=== PATIENT | male | born 1945 | race Caucasian/White ===

== ENCOUNTER → 2020-07-28 12:39 | Outpatient (BNVA) | payer MEDICARE, SELFPAY | PROVIDERS: PCP Internal Medicine; Visit Provider Internal Medicine Cardiovascular Disease | DX: I25.10 Atherosclerotic heart disease of native coronary artery without angina pectoris (principal); I10 Essential (primary) hypertension; I49.3 Ventricular premature depolarization | CPT/HCPCS: 99212 ==

== ENCOUNTER 2020-10-25 08:48 | Emergency (ER) | payer MEDICARE, SELFPAY ==
[2020-10-25] VITALS (7 sets, daily range): BP systolic 133–156; BP diastolic 67–88; PULSE 61–69; RESP 16–18; TEMP 36.1–37.1; O2SAT 96–100; BMI 27.2
--- NOTE | ~2020-10-25 | US_ITS ---
EXAMINATION: US ABDOMEN LIMITED CLINICAL INFORMATION: Vomiting. GB only. COMPARISON: None TECHNIQUE: Real-time imaging of the right upper quadrant abdominal viscera. FINDINGS: There are no echogenic gallstones, wall thickening or tenderness over the right upper quadrant ultrasound probe. The gallbladder wall measures 0.2 cm thick. The CBD measures 0.26 cm and is nondilated. US/US abdomen limited IMPRESSION: Unremarkable gallbladder.
--- NOTE | ~2020-10-25 | CT_ITS ---
EXAMINATION: CT ABDOMEN AND PELVIS WITHOUT CONTRAST CLINICAL INFORMATION: Vomiting COMPARISON: Ultrasound abdomen 10/25/2020 TECHNIQUE: Multidetector volumetric imaging was performed from the superior aspect of the liver through the pubic symphysis. Sagittal and coronal reformatted images were obtained on the technologist's workstation. This CT examination was performed using dose optimization techniques as appropriate, variously including the following: *Automated exposure control *Adjustment of mA and/or kV according to patient size (this includes techniques or standardized protocols for targeted exams where dose is matched to indication/reason for exam; i.e. extremities or head) *Use of iterative reconstruction technique DLP: 522 mGy-cm FINDINGS: LUNG BASES: The visualized lung bases are unremarkable. There is a moderate size hiatal hernia or GE junction mass with proximal distal small bowel dilation with fluid. LIVER, GALLBLADDER, AND BILIARY TREE: The liver is normal in size, shape, and attenuation. No focal hepatic lesion or biliary ductal dilatation is present. The gallbladder is unremarkable with no evidence of radiopaque gallstones, gallbladder wall thickening, or obvious pericholecystic inflammatory changes. PANCREAS: Unremarkable. SPLEEN: Unremarkable. ADRENAL GLANDS: Unremarkable. KIDNEYS AND URETERS: The kidneys are normal in size, shape, and attenuation. No hydronephrosis, hydroureter, or calculi seen. No perinephric stranding. There is a 4.4 cm cyst upper mid pole right kidney. BLADDER: Unremarkable. GASTROINTESTINAL TRACT: There is scattered diverticuli, stool and gas seen throughout the colon without colonic distention or diverticulitis. The small bowel loops are normal caliber. The appendix is normal caliber. There is no free air or free fluid. ABDOMINAL WALL: Small umbilical hernia containing fat is noted. LYMPH NODES: Normal. VASCULAR: The abdominal aorta is of normal caliber. No retroperitoneal lymph nodes seen. PELVIC VISCERA: Unremarkable. OSSEOUS STRUCTURES: There is compression deformity L1 vertebra of indeterminate age. There is vacuum disc phenomena at L1-L2, TE 11-12 20 13-11 disc levels. Mild bilateral facet joint arthropathy seen at the elbow 5-S1 disc level. CT/CT abdomen pelvis wo con IMPRESSION: Moderate size soft tissue mass at GE junction question underlying mass versus hiatal hernia with mid and distal esophageal dilation from fluid. Consider endoscopy or upper GI exam Colonic diverticulosis without diverticulitis. No obstruction or free air seen. Compression deformity L1 vertebra of indeterminate age. Small to moderate size right renal cyst.
--- NOTE | 2020-10-25 08:57 | ED_ITS ---
HPI - Nausea/Vomiting/Diarrhea General Chief complaint: Nausea/Vomiting/Diarrhea Stated complaint: vomiting Time Seen by Provider: 10/25/20 08:57 Source: patient Mode of arrival: ambulatory Limitations: no limitations History of Present Illness MD elicited complaint: nausea and vomiting Onset (ago): day(s) (yesterday at noon) Description of vomiting: watery and bilious Associated nausea: Yes Associated abdominal pain: No Location of pain: none Exacerbating factors: eating Relieving factors: none Context: possible food poisoning (started the next day after eating a burger, thai fries, onion rings, then had a whoopie pie for dessert) Associated symptoms: nausea/vomiting Related Data Home Medications Medication Instructions Recorded Confirmed aspirin 81 mg tablet,delayed 81 mg PO DAILY 07/28/20 07/28/20 release isosorbide mononitrate 30 mg 30 mg PO DAILY 07/28/20 07/28/20 tablet,extended release 24 hr multivitamin 1 tab PO DAILY 07/28/20 07/28/20 Previous Rx's Medication Instructions Recorded metoprolol succinate 50 mg 50 mg PO DAILY #90 tab 07/08/20 tablet,extended release 24 hr atorvastatin 80 mg tablet 80 mg PO DAILY #90 tab 08/20/20 Allergies Allergy/AdvReac Type Severity Reaction Status Date / Time No Known Allergies Allergy Verified 10/25/20 08:51 Review of Systems Review of Systems: Constitutional : No Weight loss, No Fever, No Chills ENT/Mouth : No sore throat, No Rhinorrhea Eyes: No Swelling, No Redness Cardiovascular : No Chest Pain, No SOB, NoEdema Respiratory : No Cough, No Sputum, No Wheezing Gastrointestinal : Positive Nausea, Positive Vomiting, no Diarrhea, no abdominal Pain, No Hematochezia, No Melena Genitourinary : No Dysuria, No Urinary Frequency, No Hematuria, No Urgency Musculoskeletal : No joint pain, No Myalgias, No Joint Swelling Skin : No Skin Lesions, No rash Neuro : No Weakness, No Numbness, No Dizziness, No Headache Psych : No Anxiety/Panic, No Depression Heme/Lymph: No Bruising, No Lymphadenopathy Endocrine : No Polyuria, No Polydipsia All other systems reviewed and are negative. Gastrointestinal: Gastrointestinal: Reports nausea PMFSH Past Medical History Attestation statement: The following information was validated with the patient. Medical History CAD (coronary artery disease) HTN (hypertension) PVCs (premature ventricular contractions) Surgical History Hx of CABG Hx of cardiac cath Stented coronary artery Family History Family History (Updated 07/25/20 @ 11:52 by Estrella Heard [facility]) Father CVD (cardiovascular disease) Mother CVD (cardiovascular disease) Social History Social History (Updated 10/25/20 @ 09:05 by Merline Owens DO) Patient Tobacco Use Status: Never used Tobacco Use of substances other than those prescribed or required for medical reasons: No Advance Directives: No Advance Directives Information Provided: No Physical Exam Vital Signs: Vital Signs: Last Vital Signs Temp 98.8 F 10/25/20 10:31 Pulse 64 10/25/20 12:00 Resp 16 10/25/20 12:00 BP 133/88 10/25/20 12:00 Pulse Ox 99 10/25/20 12:00 Body Mass Index 27.2 Appearance: Alert. Oriented X3. No acute distress. Eyes: Pupils equal, round and reactive to light. ENT: Pharynx normal. Neck: Normal inspection. Neck supple. CVS: Normal heart rate and rhythm. Pulses normal. Respiratory: No respiratory distress. Breath sounds normal. Abdomen: Soft and non-tender. Skin: Skin warm and dry. Normal skin color. Normal skin turgor. Extremities: No lower extremity edema. No calf ttp Neuro: Oriented X 3. No motor deficit. No sensory deficit. Course Course Course Narrative: unable to tolerate PO will repeat medications, obtain CT scan for obstruction/mass GE junction mass cannot tolerate PO still will consult GI at this time 123pm Dr. Hall to see patient and obtain Endoscopy MDM - Nausea/Vomiting/Diarrhea MDM Narrative Medical decision making narrative: 75 yo male with hx of CABG and stent, HLD, HTN comes in with n/v no abdominal pain started after consuming a large meal at a club has not had prior abdominal surgeries at this time will obtain labs, EKG, US for gallstones, IVF, zofran, dispo per results and finding. Lab Data Result diagrams: 10/25/20 09:37 10/25/20 09:38 Labs: Lab Results 06/10/25/20 10/25/20 Range/Units 09:37 09:38 09:38 WBC 10.0 (4.8-10.8) X10*3/uL RBC 4.07 L (4.60-5.80) X10*6/uL Hgb 14.4 (14.0-18.0) g/dl Hct 42.8 (42-52) % MCV 105.2 H (80-98) fL MCH 35.4 H (27.0-33.0) pg MCHC 33.6 (31.0-36.0) g/dl RDW 12.4 (11.0-16.0) % Plt Count 220 (160-400) X10*3/uL MPV 10.7 (9.4-12.4) fL Immature Gran % (Auto) 0.3 (0.0-0.4) % Neut % (Auto) 78.4 H (45-73) % Lymph % (Auto) 15.1 L (20-40) % Roosevelt % (Auto) 5.6 (2-11) % Eos % (Auto) 0.4 (0-4) % Baso % (Auto) 0.2 (0-2) % Lymph # (Auto) 1.5 (1.2-4.9) X10*3/uL Roosevelt # (Auto) 0.6 (0.1-1.2) X10*3/uL Eos # (Auto) 0.0 (0.0-0.4) X10*3/uL Baso # (Auto) 0.0 (0.0-0.2) X10*3/uL Abs Immat Gran (auto) 0.03 (0.00-0.03) X10*3/uL Absolute Neuts (auto) 7.8 (2.0-8.3) X10*3/uL Absolute Nucleated RBC 0.000 (0.0-0.012) X10*3/uL Nucleated RBC % (auto) 0.0 (0.0-0.2) /100WBC PT (10.8-13.0) SEC INR (0.9-1.1) APTT (24.1-38.0) SEC Sodium 143 (135-145) mmol/L Potassium 4.0 (3.3-5.1) mmol/L Chloride 106 (96-108) mmol/L Carbon Dioxide 28 (22-29) mmol/L Anion Gap 13 (12-20) BUN 28 H (9-16) mg/dL Creatinine 1.26 (0.5-1.4) mg/dL Estim Creat Clear Calc 47.5 Estimated GFR 55 Random Glucose 125 H (60-115) mg/dL Calcium 10.0 (8.4-10.2) mg/dL Magnesium 2.3 (1.6-2.6) mg/dL Total Bilirubin 1.0 (0.0-1.0) mg/dL Direct Bilirubin 0.5 (0.0-0.5) mg/dL AST 34 (5-37) U/L ALT 23 (0-40) U/L Alkaline Phosphatase 70 (39-117) U/L Troponin I High Sens (<3.5-35.0) ng/L Total Protein 7.8 (6.5-8.0) g/dL Albumin 4.7 (3.5-5.0) g/dL Lipase 16 (8-78) U/L Urine Color Urine Appearance Urine pH (5.0-8.0) Ur Specific [place] (1.005-1.025) Urine Protein (NEG-TRACE) MG/DL Urine Glucose (UA) (NEG) MG/DL Urine Ketones (NEG) MG/DL Urine Blood (NEG) Urine Nitrite (NEG) Ur Leukocyte Esterase (NEG) Urine RBC (0) /HPF Urine WBC (0-4) /HPF Ur Squamous Epith Cells /LPF Urine Bacteria /LPF Urine Mucus /LPF COVID-19 (CRISTINA) Negative (Negative) COVID-19 Clin Com See Note 10/25/20 10/25/20 10/25/20 Range/Units 09:38 10:37 13:23 WBC (4.8-10.8) X10*3/uL RBC (4.60-5.80) X10*6/uL Hgb (14.0-18.0) g/dl Hct (42-52) % MCV (80-98) fL MCH (27.0-33.0) pg MCHC (31.0-36.0) g/dl RDW (11.0-16.0) % Plt Count (160-400) X10*3/uL MPV (9.4-12.4) fL Immature Gran % (Auto) (0.0-0.4) % Neut % (Auto) (45-73) % Lymph % (Auto) (20-40) % Roosevelt % (Auto) (2-11) % Eos % (Auto) (0-4) % Baso % (Auto) (0-2) % Lymph # (Auto) (1.2-4.9) X10*3/uL Roosevelt # (Auto) (0.1-1.2) X10*3/uL Eos # (Auto) (0.0-0.4) X10*3/uL Baso # (Auto) (0.0-0.2) X10*3/uL Abs Immat Gran (auto) (0.00-0.03) X10*3/uL Absolute Neuts (auto) (2.0-8.3) X10*3/uL Absolute Nucleated RBC (0.0-0.012) X10*3/uL Nucleated RBC % (auto) (0.0-0.2) /100WBC PT 12.4 (10.8-13.0) SEC INR 1.0 (0.9-1.1) APTT 29.9 (24.1-38.0) SEC Sodium (135-145) mmol/L Potassium (3.3-5.1) mmol/L Chloride (96-108) mmol/L Carbon Dioxide (22-29) mmol/L Anion Gap (12-20) BUN (9-16) mg/dL Creatinine (0.5-1.4) mg/dL Estim Creat Clear Calc Estimated GFR Random Glucose (60-115) mg/dL Calcium (8.4-10.2) mg/dL Magnesium (1.6-2.6) mg/dL Total Bilirubin (0.0-1.0) mg/dL Direct Bilirubin (0.0-0.5) mg/dL AST (5-37) U/L ALT (0-40) U/L Alkaline Phosphatase (39-117) U/L Troponin I High Sens 7.1 (<3.5-35.0) ng/L Total Protein (6.5-8.0) g/dL Albumin (3.5-5.0) g/dL Lipase (8-78) U/L Urine Color YELLOW Urine Appearance HAZY Urine pH 6.0 (5.0-8.0) Ur Specific [place] 1.025 (1.005-1.025) Urine Protein TRACE (NEG-TRACE) MG/DL Urine Glucose (UA) NEG (NEG) MG/DL Urine Ketones 5 (NEG) MG/DL Urine Blood 1+ H (NEG) Urine Nitrite NEG (NEG) Ur Leukocyte Esterase NEG (NEG) Urine RBC 1-4 (0) /HPF Urine WBC 0 (0-4) /HPF Ur Squamous Epith Cells TRACE /LPF Urine Bacteria NONE /LPF Urine Mucus 2+ /LPF COVID-19 (CRISTINA) (Negative) COVID-19 Clin Com ECG Data Attestation: I personally reviewed and interpreted this ECG as follows: ECG interpretation date: 10/25/20 ECG interpretation time: 10:11 Interpretation: Rate: 63 Rhythm: NSR with 1st degree AVB with occ PVCs [place]: normal Normal P waves. Normal JHOANA. Normal QRS complex. ST T wave : nonspecific flat no GERONIMO qTC: normal prior studies: no acute ischemia The study has been interpreted contemporaneously by me. . Discharge Plan Discharge Clinical Impression: Esophageal mass Vomiting Qualifiers: Vomiting type: unspecified Vomiting Intractability: intractable Nausea presence: with nausea Qualified Code(s): R11.2 - Nausea with vomiting, unspecified Patient Disposition: Admitted As Inpatient
--- NOTE | 2020-10-25 09:01 | ECG_ITS ---
Test Reason : CP Blood Pressure : / mmHG Vent. Rate : 063 BPM Atrial Rate : 063 BPM P-R Int : 206 ms QRS Dur : 100 ms QT Int : 466 ms P-R-T Axes : 018 -07 013 degrees QTc Int : 476 ms Sinus rhythm with occasional Premature ventricular complexes and Premature atrial complexes Otherwise normal ECG No previous ECGs available Referred By: Merline Owens Electronically Signed By:Murphy Olivas
--- NOTE | 2020-10-25 09:19 | PC.NURSE ---
portable ultrasound at bedside.
[2020-10-25 09:43] LABS: MANUAL DIFF FLAG NO
[2020-10-25] MEDS: ondansetron HCL 4 MG/2 ML VIAL IVPUSH ×2 (09:44→12:18)
[2020-10-25] MEDS: 0.9 % Sodium Chloride 1,000 ML 999 ML IVCONT (09:44)
[2020-10-25 09:58] LABS: COVID-19 Test Negative (Negative); IDNOW Serial# 9DD0AD1C
[2020-10-25 10:08] LABS: Basophils Percent Auto 0.2 % (0-2); Eosinophils Percent Auto 0.4 % (0-4); Hematocrit 42.8 % (42-52); Hemoglobin 14.4 g/dl (14.0-18.0); Imm Gran Abs Auto 0.03 X10*3/uL (0.00-0.03); Imm Gran Pct Auto 0.3 % (0.0-0.4); Lymphocytes Absolute Auto 1.5 X10*3/uL (1.2-4.9); Lymphocytes Percent Auto 15.1 % (20-40); Mean Corpuscular HGB Conc 33.6 g/dl (31.0-36.0); Mean Corpuscular Hemoglobin 35.4 pg (27.0-33.0); Mean Corpuscular Volume 105.2 fL (80-98); Mean Platelet Volume 10.7 fL (9.4-12.4); Monocytes Absolute Auto 0.6 X10*3/uL (0.1-1.2); Monocytes Percent Auto 5.6 % (2-11); Neutrophils Absolute Auto 7.8 X10*3/uL (2.0-8.3); Neutrophils Percent Auto 78.4 % (45-73); Platelet Count 220 X10*3/uL (160-400); Red Blood Count 4.07 X10*6/uL (4.60-5.80); Red Cell Distribution Width 12.4 % (11.0-16.0)
[2020-10-25 10:23] LABS: Alanine Aminotransferase 23 U/L (0-40); Albumin Level 4.7 g/dL (3.5-5.0); Alkaline Phosphatase 70 U/L (39-117); Anion Gap 13 (12-20); Aspartate Amino Transferase 34 U/L (5-37); Bilirubin Direct 0.5 mg/dL (0.0-0.5); Blood Urea Nitrogen 28 mg/dL (9-16); Carbon Dioxide 28 mmol/L (22-29); Chloride 106 mmol/L (96-108); Creatinine Clr Calc Pharmacy 47.5; Estimated Glomerular Filt Rate 55; Glucose Random 125 mg/dL (60-115); Lipase 16 U/L (8-78); Magnesium 2.3 mg/dL (1.6-2.6); Sodium 143 mmol/L (135-145); Total Protein 7.8 g/dL (6.5-8.0)
[2020-10-25 10:44] LABS: Glucose Urine UA NEG (NEG); Leukocyte Esterase Urine NEG (NEG); Nitrite Urine NEG (NEG); Specific Gravity - Urine 1.025 (1.005-1.025); Urine Blood 1+ (NEG); Urine Ketones 5 MG/DL (NEG); Urine Protein TRACE MG/DL (NEG-TRACE)
[2020-10-25 10:47] LABS: Appearance Urine HAZY; Color Urine YELLOW
[2020-10-25] MEDS: diphenhydrAMINE HCL 50 MG/ML VIAL 25 MG IVPUSH (10:56)
[2020-10-25] MEDS: Metoclopramide HCl 10 MG/2 ML VIAL 5 MG IVPUSH (10:56)
[2020-10-25 11:08] LABS: Mucus Urine 2+ /LPF; Squamous Epithelial Cell Urine TRACE /LPF; WBC Urine 0 /HPF (0-4)
[2020-10-25 11:36] LABS: Troponin-I High Sensitivity 7.1 ng/L (<3.5-35.0)
--- NOTE | 2020-10-25 12:20 | PC.NURSE ---
attempted PO trial on patient unsuccessfully- pt spitting up into an emesis bag, not tolerating small sips of water- provider made aware and CT scan and another dose of IVP zofran ordered and given
[2020-10-25 13:35] LABS: Prothrombin Time 12.4 SEC (10.8-13.0)
[2020-10-25 13:38] LABS: Partial Thromboplastin Time 29.9 SEC (24.1-38.0)
--- NOTE | 2020-10-25 14:09 | MHC.SHP ---
Pre-Procedural Eval Section A Date of Service: 10/25/20 The patient is an INPATIENT: No Changes since office visit: No Cold of Flu in the past 2 weeks, No New Medical Problems, No Changes in Medication and No Patient answered all questions The History & Physical has been completed within 30 days and I have reviewed it.: Yes Section B Chief Complaint: vomiting Allergies: Allergies Allergy/AdvReac Type Severity Reaction Status Date / Time No Known Allergies Allergy Verified 10/25/20 08:51 Plan I have reviewed the history and physical and performed a pertinent physical examination on my patient. No changes have occurred unless specified.
--- NOTE | 2020-10-25 15:33 | P.BOP_ITS ---
Brief Operative Note Date of Service: 10/25/20 Pre-op diagnosis: fb esophaGUS Post-op diagnosis: same (ESOPHAGEAL ULCER, SCHATZKI RING) Procedure: EGD Surgeon: Torsten Hall Anesthesia: GETA Was an Field Sales Engineer used for this Procedure?: No Estimated blood loss (mL): 5 Pathology: none sent Condition: stable Disposition: PACU
--- NOTE | 2020-10-25 21:03 | CONS_ITS ---
DATE OF SERVICE: 10/25/2020 REFERRING PHYSICIAN: Merline Owens DO REASON FOR CONSULTATION: Dysphagia and abnormal CT scan. HISTORY OF PRESENT ILLNESS: The patient is a pleasant 75-year-old man, who presented to the emergency room today with complaints of dysphagia. Symptoms began yesterday when he ate a salad that had chicken in it. Since that time, he has been unable to keep liquids or solids down. He denies a prior history of esophageal obstruction, but has had occasions, where food needs to be washed down with extra water. This has not been progressive. He does not have chronic reflux symptoms. There has been no hematemesis or melena. PAST MEDICAL HISTORY: 1. Coronary artery disease with stent placement and bypass surgery. 2. Hypertension. 3. Elevated cholesterol. 4. PVCs. CURRENT MEDICATIONS: Aspirin, isosorbide, multivitamins, metoprolol, and atorvastatin. ALLERGIES: NONE. FAMILY HISTORY: This is negative for esophageal malignancy. SOCIAL HISTORY: There is no current tobacco, alcohol, or substance abuse. REVIEW OF SYSTEMS: SKIN: No pruritus. HEENT: Negative. CARDIOPULMONARY: No shortness of breath or chest pain. GASTROINTESTINAL: As above. GENITOURINARY: Negative. NEUROPSYCHIATRIC: Negative. PHYSICAL EXAMINATION: GENERAL: Shows a pleasant male, sitting comfortably in bed. VITAL SIGNS: Reviewed in electronic medical record and are stable. SKIN: Anicteric. HEENT: Shows no scleral icterus. NECK: Without lymphadenopathy or thyromegaly. LUNGS: Clear. HEART: Shows regular rate and rhythm. S1, S2. No murmur. ABDOMEN: Soft without focal masses or tenderness. Bowel sounds are present. No organomegaly is noted. EXTREMITIES: Without edema. LABORATORY DATA: Obtained including blood work showing a normal CBC. CT imaging of the abdomen and pelvis was obtained, which is reviewed. This is interpreted as showing moderate size soft tissue mass at the EG junction, question of underlying mass versus hiatal hernia with mid distal esophageal dilation from fluid. IMPRESSION: Esophageal obstruction. The patient appears to have a partial esophageal obstruction. He is handling secretions, but is spitting up as well. He did not tolerate a trial of water. I have discussed endoscopy with him including risks and benefits. He understands these and agrees to proceed. This will be arranged for this afternoon. MD CECY Sauer/NORM / [id number]
--- NOTE | 2020-10-25 21:03 | OP_ITS ---
SURGEON: Torsten Hall MD INDICATIONS: Esophageal obstruction. PREOPERATIVE DIAGNOSIS: POSTOPERATIVE DIAGNOSIS: PROCEDURE PERFORMED: Upper endoscopy with removal of foreign body. ESTIMATED BLOOD LOSS: COMPLICATIONS: ANESTHESIA: ASSISTANTS: SPECIMENS: MEDICATIONS: Monitored anesthesia care. DESCRIPTION OF PROCEDURE: History and physical performed. The risks and benefits of the procedure were explained to the patient. Informed consent was obtained. The patient was placed in the left lateral decubitus position. The Olympus video gastroscope was introduced into the esophagus, stomach, and duodenum. Examination was performed and the scope was removed. He tolerated the procedure well and was taken to recovery area in stable condition. FINDINGS: Esophagus: The esophagus showed a partial food impaction at the EG junction with a piece of meat that had impacted along a Schatzki ring at 39 cm. There was associated ulceration above this. The food material was pushed into the stomach with the biopsy forceps and copious irrigation. The ulceration at the site of the food impaction showed some minor oozing that was stable at the termination of the procedure. The Schatzki ring was nonobstructive and the scope passed easily through this into the stomach. There was a small hiatal hernia. Stomach: The stomach showed no evidence of masses, ulcers, or polyps. Duodenum: The bulb and second portion were normal. IMPRESSION: 1. Food impaction. 2. EG junction ulcer. 3. Schatzki ring. RECOMMENDATIONS: 1. Soft diet x24 hours. 2. Omeprazole 40 mg daily. 3. Repeat upper endoscopy in the next 8 to 12 weeks. MD CECY Sauer/MODL / [id number] MTDD
--- NOTE | 2020-10-27 09:28 | HO.POSTANES ---
Post Anesthesia Evaluation Post Anesthesia Evaluation Anesthesia: General Endotracheal-GETA Mental Status: Awake Pain Control: Satisfactory Nausea/Vomiting: None Hydration: Adequate Anesthesia-Related Issues: No Anes. Related Issues
== END 2020-10-25 16:40 | disposition home or self-care (01) ==
PROVIDERS: Internal Medicine Gastroenterology; Emergency Provider Emergency Medicine; PCP Internal Medicine
PROC: 0DJ08ZZ Inspection of Upper Intestinal Tract, Via Natural or Artificial Opening Endoscopic (ICD-10-PCS; CPT 43235; principal; 2020-10-25 14:15)
DX: T18.128A Food in esophagus causing other injury, initial encounter (principal); K22.2 Esophageal obstruction; K22.10 Ulcer of esophagus without bleeding; K44.9 Diaphragmatic hernia without obstruction or gangrene; I10 Essential (primary) hypertension; I25.10 Atherosclerotic heart disease of native coronary artery without angina pectoris; Z79.82 Long term (current) use of aspirin; Z79.899 Other long term (current) drug therapy; Z95.1 Presence of aortocoronary bypass graft; Z95.5 Presence of coronary angioplasty implant and graft; Z20.822 Contact with and (suspected) exposure to COVID-19; X58.XXXA Exposure to other specified factors, initial encounter; Y93.9 Activity, unspecified; Y92.9 Unspecified place or not applicable; Y99.9 Unspecified external cause status
CPT/HCPCS: 43247; 36415; 74176; 76705; 80048; 80076; 81001; 83690; 83735; 84484; 85025; 85610; 85730; 86850; 86900; 86901; 87635; 93005; 96361; 96374; 96375; 96376; 99285; J1100; J1200; J2250; J2405; J2765

== ENCOUNTER 2020-11-20 11:29 | Outpatient (REF) | payer MEDICARE, SELFPAY ==
[2020-11-20 13:47] LABS: MANUAL DIFF FLAG NO
[2020-11-20 13:54] LABS: Basophils Percent Auto 0.5 % (0-2); Eosinophils Absolute Auto 0.4 X10*3/uL (0.0-0.4); Eosinophils Percent Auto 5.5 % (0-4); Hematocrit 40.5 % (42-52); Hemoglobin 13.6 g/dl (14.0-18.0); Imm Gran Abs Auto 0.02 X10*3/uL (0.00-0.03); Imm Gran Pct Auto 0.3 % (0.0-0.4); Lymphocytes Absolute Auto 1.7 X10*3/uL (1.2-4.9); Lymphocytes Percent Auto 22.3 % (20-40); Mean Corpuscular HGB Conc 33.6 g/dl (31.0-36.0); Mean Corpuscular Hemoglobin 35.1 pg (27.0-33.0); Mean Corpuscular Volume 104.7 fL (80-98); Mean Platelet Volume 11.3 fL (9.4-12.4); Monocytes Absolute Auto 0.6 X10*3/uL (0.1-1.2); Neutrophils Absolute Auto 4.7 X10*3/uL (2.0-8.3); Neutrophils Percent Auto 63.4 % (45-73); Platelet Count 223 X10*3/uL (160-400); Red Blood Count 3.87 X10*6/uL (4.60-5.80); Red Cell Distribution Width 12.1 % (11.0-16.0); White Blood Count 7.4 X10*3/uL (4.8-10.8)
[2020-11-20 14:18] LABS: Alanine Aminotransferase 19 U/L (0-40); Albumin Level 4.3 g/dL (3.5-5.0); Alkaline Phosphatase 70 U/L (39-117); Anion Gap 12 (12-20); Aspartate Amino Transferase 24 U/L (5-37); Bilirubin Total 0.9 mg/dL (0.0-1.0); Blood Urea Nitrogen 18 mg/dL (9-16); Calcium 9.3 mg/dL (8.4-10.2); Carbon Dioxide 28 mmol/L (22-29); Chloride 104 mmol/L (96-108); Cholesterol 123 mg/dL; Estimated Glomerular Filt Rate > 60; Glucose Fasting 88 mg/dL (60-99); HDL Cholesterol 44 mg/dL; LDL Cholesterol Calculated 62 mg/dl; Potassium 4.1 mmol/L (3.3-5.1); Sodium 140 mmol/L (135-145); Total Protein 7.2 g/dL (6.5-8.0); Triglycerides 88 mg/dL
[2020-11-20 14:39] LABS: Prostate Specific Antigen 1.76 ng/mL (<0.05-4.0)
== END 2020-11-20 11:30 | disposition home or self-care (01) ==
LOC: HO.HMGCLDS 11:29
PROVIDERS: PCP Internal Medicine; Visit Provider Internal Medicine
DX: Z12.5 Encounter for screening for malignant neoplasm of prostate (principal); I25.10 Atherosclerotic heart disease of native coronary artery without angina pectoris; E78.00 Pure hypercholesterolemia, unspecified; K21.9 Gastro-esophageal reflux disease without esophagitis; N40.0 Benign prostatic hyperplasia without lower urinary tract symptoms
CPT/HCPCS: 36415; 80053; 80061; 84153; 85025

== ENCOUNTER → 2021-01-29 12:24 | Outpatient (BNVA) | payer MEDICARE, SELFPAY | PROVIDERS: PCP Internal Medicine; Referring Provider Internal Medicine; Visit Provider Internal Medicine Cardiovascular Disease | DX: I25.10 Atherosclerotic heart disease of native coronary artery without angina pectoris (principal); I49.3 Ventricular premature depolarization; Z79.82 Long term (current) use of aspirin | CPT/HCPCS: 99212 ==

== ENCOUNTER 2021-02-17 07:50 | Day surgery (SDC) | payer MEDICARE, SELFPAY ==
[2021-02-12 10:03] VITALS: BMI 59.6
--- NOTE | 2021-02-16 10:51 | HO.ANESPROP2 ---
Documented by User: Santa Crawford NP 02/16/21 10:54 HPI - Anesthesia Eval Consult details Narrative: 75yo M for Upper Endoscopy and Colonoscopy cardiac cleared @ low risk s/p EGD (food bolus) with GETA 09/2020 [facility] Active Problems Active Problems: All Active Problems (Updated 10/26/20 @ 00:01 by Background Daemon) PVCs (premature ventricular contractions) (Acute) HTN (hypertension) (Acute) CAD (coronary artery disease) (Acute) Past Medical History Medical History CAD (coronary artery disease) HTN (hypertension) PVCs (premature ventricular contractions) Family History Family History Father CVD (cardiovascular disease) Mother CVD (cardiovascular disease) Surgical History Surgical History (Updated 02/12/21 @ 09:55 by Sindy Taylor RN) History of esophagogastroduodenoscopy (EGD) Hx of CABG Hx of cardiac cath Stented coronary artery Social History Social History Patient Tobacco Use Status: Never used Tobacco Advance Directives Information Provided: Yes (informational brochure mailed) Advance Directives on File: No Meds Allergies Allergy/AdvReac Type Severity Reaction Status Date / Time No Known Allergies Allergy Verified 10/25/20 08:51 Home Medications Medication Instructions Recorded Confirmed Last Taken Type aspirin 81 mg tablet,delayed 81 mg PO DAILY 07/28/20 02/12/21 Unknown History release (Adult Low Dose Aspirin) multivitamin 1 tab PO DAILY 07/28/20 02/12/21 Unknown History Exam Exam Date and Time: February 16, 2021 1051 Height,Weight and Vital Signs: Height 5 ft 8 in Weight 178 kg Pertinent Lab Results Pertinent Lab Results: Laboratory Tests 11/20/20 11/20/20 11:40 11:40 WBC 7.4 Hgb 13.6 L Hct 40.5 L Plt Count 223 Sodium 140 Potassium 4.1 Chloride 104 Carbon Dioxide 28 BUN 18 H Creatinine 1.17 Narrative Narrative: EKG 09/2020 Vent. Rate : 063 BPM ? ? Atrial Rate : 063 BPM ?? P-R Int : 206 ms? QRS Dur : 100 ms ? ? QT Int : 466 ms ? ? ? P-R-T Axes : 018 -07 013 degrees ?? QTc Int : 476 ms ? Sinus rhythm with occasional Premature ventricular complexes and Premature atrial complexes Otherwise normal ECG No previous ECGs available Assessment and Plan Assessment Anesthesia Assessment: Chart Reviewed Documented by User: Kristina Leal MD 02/17/21 09:33 PMF Active Problems Active Problems: All Active Problems (Updated 10/26/20 @ 00:01 by Gilberto Dajohn) PVCs (premature ventricular contractions) (Acute) HTN (hypertension) (Acute) CAD (coronary artery disease) (Acute). Denies recent chest pain Past Medical History Medical History CAD (coronary artery disease) HTN (hypertension) PVCs (premature ventricular contractions) Family History Family History Father CVD (cardiovascular disease) Mother CVD (cardiovascular disease) Family history of problems with anesthesia: No Surgical History Surgical History (Updated 02/12/21 @ 09:55 by Sindy Taylor RN) History of esophagogastroduodenoscopy (EGD) Hx of CABG Hx of cardiac cath Stented coronary artery History of Problems with Anesthesia: No Social History Social History Patient Tobacco Use Status: Never used Tobacco Advance Directives Information Provided: Yes (informational brochure mailed) Advance Directives on File: No Meds Allergies Allergy/AdvReac Type Severity Reaction Status Date / Time No Known Allergies Allergy Verified 10/25/20 08:51 Home Medications Medication Instructions Recorded Confirmed Last Taken Type aspirin 81 mg tablet,delayed 81 mg PO DAILY 07/28/20 02/12/21 Unknown History release (Adult Low Dose Aspirin) multivitamin 1 tab PO DAILY 07/28/20 02/12/21 Unknown History Exam Height,Weight and Vital Signs: Height 5 ft 8 in Weight 178 kg Vital Signs Temp Pulse Resp BP Pulse Ox 02/17/21 08:06 97.2 F 72 15 146/74 H 97 Airway Mallampati Class: III TM Dist: >3cm Neck ROM: Full Loose/Missing/Broken Teeth: No Heart: RRR Lungs: CTAB Assessment and Plan Assessment Anesthesia Assessment: Anesthesia Plan Discussed Final Anesthetic Review Family History of Problems with Anesthesia: No History of Problems with Anesthesia: No NPO: Yes ASA Class: III Final Preanesthetic Review: No Changes in Pt Med Stat, Meds/Allgs Chart Reviewed, Consent Obtained/Reviewed and Anes Risks/Benef Reviewed Patient Risk: Intermediate Procedure Risk: Low Assessment/Block/Sedation in SS: Assess/Block/Sedation-SS Anesthetic Plan Anesthetic Plan: MAC: Disposition: Standard PACU
[2021-02-17 08:00] VITALS: BMI 26.9
[2021-02-17 08:06] VITALS: BP 146/74; PULSE 72; RESP 15; TEMP 36.2; O2SAT 97
[2021-02-17] MEDS: Lactated Ringers 1,000 ML 100 ML IVCONT (08:27)
--- NOTE | 2021-02-17 08:56 | MHC.SHP ---
Pre-Procedural Eval Section A Date of Service: 02/17/21 Section B Chief Complaint: esophagitis Details of Present Illness: see h&p egd for f/u on esophagitis colonoscopy for colon cancer screening Relevant Family History (Specify if Yes): No Relevant Social History: None Present Medications: see Short Stay Collaborative assessment Medical History: Significant History (see h&p no changes) Allergies: Allergies Allergy/AdvReac Type Severity Reaction Status Date / Time No Known Allergies Allergy Verified 10/25/20 08:51 Review of Systems Sugical H&P ROS: Negative: Constitution, Cardiovascular, Respiratory, Neurological, Psychiatric, Hem-Onc, Allergic/Immunologic, Gastrointestinal, Genitourinary, Musculoskeletal, Integumentary, Endocrine and Eyes/Ears/Nose/Throat Exam Surgical H&P Exam: Normal: HEENT, Normal: Heart, Normal: Lungs, Normal: Extremities, Normal: Abdomen, Normal: Skin and Normal: Neurological Plan Diagnosis/Plan: Unchanged I have reviewed the history and physical and performed a pertinent physical examination on my patient. No changes have occurred unless specified.
--- NOTE | 2021-02-17 09:39 | P.BOP_ITS ---
Brief Operative Note Date of Service: 02/17/21 Pre-op diagnosis: esophagitis, screening Post-op diagnosis: same (schatzki ring, hiatal hernia, colon polyp) Procedure: EGD/colon Surgeon: Torsten Hall Anesthesia: MAC Was an Digital Marketing Specialist used for this Procedure?: No Estimated blood loss (mL): 5 Pathology: other (antral bx, egj bx, colon polyp) Condition: stable Disposition: PACU
[2021-02-17 09:42] VITALS: BP 105/53; PULSE 73; RESP 16; TEMP 37.1; O2SAT 99
[2021-02-17 09:56] VITALS: BP 102/58; PULSE 61; RESP 16; TEMP 37.1; O2SAT 96
--- NOTE | 2021-02-17 17:50 | OP_ITS ---
SURGEON: Torsten Hall MD INDICATIONS: Esophagitis and food impaction, colon cancer screening. PREOPERATIVE DIAGNOSIS: POSTOPERATIVE DIAGNOSIS: PROCEDURE PERFORMED: Upper endoscopy with biopsy, colonoscopy to the terminal ileum with biopsy. ESTIMATED BLOOD LOSS: COMPLICATIONS: ANESTHESIA: ASSISTANTS: SPECIMENS: MEDICATIONS: Monitored anesthesia care. DESCRIPTION OF PROCEDURE: History and physical performed. The risks and benefits of the procedure were explained to the patient. Informed consent was obtained. The patient was placed in a left lateral decubitus position. The Olympus video gastroscope was introduced into the esophagus, stomach, and duodenum. Examination was performed and the scope was removed. He tolerated the procedure well and was taken to recovery area in stable condition. FINDINGS: UPPER ENDOSCOPY: Esophagus: The esophagus was normal. There was no esophagitis. There was nonobstructive Schatzki ring and a small hiatal hernia. Biopsies were obtained from the EG junction. No dilation was done as the patient has had no symptoms since his food impaction. Stomach: The stomach was normal. Biopsies were obtained from the antrum to rule out H pylori. Duodenum: The bulb and second portion were normal. COLONOSCOPY: The terminal ileum was examined and appeared normal. The visualized colonic mucosa was normal. The quality of the prep was good. At 70 cm from the anal verge, was a less than 5 mm sessile polyp. This was removed with biopsy forceps. No other polyps were identified. There was moderate sigmoid diverticulosis without diverticulitis. Retroflexed examination was normal. IMPRESSION: 1. Hiatal hernia. 2. Schatzki ring. 3. Colon polyp. RECOMMENDATION: Follow up the biopsy results. MD CECY Sauer/SHANELLL / [phone]
== END 2021-02-17 10:29 | disposition home or self-care (01) ==
PROVIDERS: PCP Internal Medicine; Visit Provider Internal Medicine Gastroenterology
PROC: (CPT 45380; principal; 2021-02-17 08:50)
DX: Z12.11 Encounter for screening for malignant neoplasm of colon (principal); K63.5 Polyp of colon; K22.2 Esophageal obstruction; K44.9 Diaphragmatic hernia without obstruction or gangrene; K57.30 Diverticulosis of large intestine without perforation or abscess without bleeding; I49.3 Ventricular premature depolarization; I25.10 Atherosclerotic heart disease of native coronary artery without angina pectoris; Z98.61 Coronary angioplasty status; Z95.1 Presence of aortocoronary bypass graft; Z79.82 Long term (current) use of aspirin; Z79.899 Other long term (current) drug therapy
CPT/HCPCS: 45380; 43239; 88305; 88342

== ENCOUNTER → 2021-07-06 13:56 | Outpatient (REF) | payer MEDICARE, SELFPAY ==
--- NOTE | 2021-07-06 13:59 | CA_ITS ---
Transthoracic Echocardiogram Patient (Last, First, Middle): Dante Andino C Gender: Male Date of : 1945 Age: 76 Procedure Date: 07/06/2021 Procedure Type: Transthoracic Echocardiogram Location: OP Height: 172.72 cm Weight: 74.84 kg BSA: 1.88 m2 Heart Rate: bpm BP: 122 / 80 mmHg Dry Kiln Operator: LAURA Referring MD: Jason Okeefe MD Energy Assistant: Jason Okeefe MD Symptoms: I25.10 - Atherosclerotic heart disease of [place] coronary... Study Quality: Fair ECG Rhythm: Sinus Conclusions: - 1. Normal LV systolic function with impaired LV relaxation abnormality with RWMA 2. Normal cardiac valvular Dopplers 3. Normal RVSP 4. Mildly dilated ascending aorta 5. No gross pericardial effusion Findings Left Ventricle Normal left ventricular size, thickness, and systolic function. The visually estimated ejection fraction is between 60-65%. Spectral Doppler is indicative of an impaired relaxation filling pattern. E/E prime ratio is between 8 and 15 consistent with indeterminate filling pressures. Wall Motion Rest Echo Findings The basal inferior and basal inferoseptal segments are akinetic. All other scored wall segments showed normal motion. Right Ventricle Normal right ventricular cavity size and systolic function. Atria The left atrium is normal in size. Interatrial shunt cannot be excluded. The right atrium is normal in size. Aortic Valve There is mild calcification of the aortic valve. There is no aortic valve stenosis. There is trace (trivial) aortic valve regurgitation. Mitral Valve There is mild anterior and posterior mitral leaflet thickening. There is mild mitral annular calcification. There is trace mitral valve regurgitation. There is no mitral valve stenosis. Pulmonic Valve The pulmonic valve was not well visualized. Tricuspid Valve Likely normal tricuspid valve structure and function. There is trace tricuspid valve regurgitation. The right ventricular systolic pressure is normal. The right ventricular systolic pressure is 25 mmHg. Normal right atrial pressure. There is no evidence of pulmonary hypertension. Great Vessels The pulmonary artery was not well visualized. There is mild dilatation of the ascending aorta measuring 3.80 cm. Venous The inferior vena cava is normal in size and collapses greater than 50% with inspiration. Pericardium/Pleural There is no evidence of pericardial effusion. Prior Study Comparison Changes noted compared to prior study dated: 03/23/2017. Ascending aorta is mildly enlarged Measurements 2D Linear Measurements IVSd: 1.01 0.6-0.9/0.6-1.0 cm LVIDd: 4.99 3.9-5.3/4.2-5.9 cm LVIDd Index: 2.65 2.4-3.2/2.2-3.1 cm/m2 LVIDs: 3.97 2.0-3.6 cm LVPWd: 0.92 0.7-1.1 cm LA Diam: 3.70 2.7-3.8/3.0-4.0 cm LAIDs Index: 1.97 1.5-2.3 cm/m2 LV Mass: 215.11 67-162/88-224 g LV Mass Index: 114.42 43-95/49-115 g/m2 LVOT Diam: 2.10 3.0+(-)1.3 cm 2D Systolic Function EF 4C: 56.10 >55% EF 2C: 62.90 >55% EF BiP: 60.00 >55% Mitral Valve MV Pk E: 0.54 MV PK A: 0.81 MV Decel Time: 384.00 E/A: 0.70 E'Lateral: 9.25 E'Medial: 5.44 E/E' Med: 9.90 E/E' Lat: 5.80 PHT: 112.00 MVA PHT: 1.96 [place]: 1.41 LVOT LVOT Diam: 2.10 LVOT Area: 3.46 Diastolic Function MV Pk E: 0.54 MV Pk A: 0.81 E/A: 0.70 E'Medial: 5.44 E/E' Med: 9.90 E' Laterial: 9.25 E/E' Lat: 5.80 Right Ventricle TAPSE (mm): 16.90 TVS' Mendez: 11.30 Tricuspid Valve TR Pk Mendez: 2.34 TR Pk Grad: 22.00 RA Press: 3.00 RVSP: 25.00 Great Vessels Aorta Sinus of Valsalva: 3.81 2.0-3.[address] [place]: 3.04 1.7-3.4 cm Ao Asc: 3.80 2.1-3.4 cm Updated in Other Vendor System with Status of Final Jason Okeefe MD electronically signed on 07/06/2021 8:23:05 PM with status of Final
== END ==
LOC: HO.CARD 13:56
PROVIDERS: PCP Internal Medicine; Visit Provider Internal Medicine Cardiovascular Disease
DX: I25.10 Atherosclerotic heart disease of native coronary artery without angina pectoris (principal)
CPT/HCPCS: 93306

== ENCOUNTER → 2021-07-23 12:36 | Outpatient (BNVA) | payer MEDICARE, SELFPAY | PROVIDERS: PCP Internal Medicine; Referring Provider Internal Medicine; Visit Provider Internal Medicine Cardiovascular Disease | DX: I25.10 Atherosclerotic heart disease of native coronary artery without angina pectoris (principal); I49.3 Ventricular premature depolarization; I77.89 Other specified disorders of arteries and arterioles; Z79.899 Other long term (current) drug therapy | CPT/HCPCS: 99212 ==

== ENCOUNTER 2021-11-14 17:28 | Emergency (ER) | payer MEDICARE, SELFPAY ==
--- NOTE | ~2021-11-14 | XR_ITS ---
EXAMINATION: XR HIP, LEFT CLINICAL INFORMATION: Fall, pain COMPARISON: None TECHNIQUE: Two views of the left hip. FINDINGS: Single view pelvis also obtained. No fracture on the pelvic image. Degenerative changes are noted. 2. Detailed views of the left hip do not show convincing evidence for an acute fracture or dislocation. XR/XR hip LT w PEL1V IMPRESSION: Degenerative changes. No convincing evidence for an acute fracture or dislocation.
--- NOTE | ~2021-11-14 | CT_ITS ---
EXAMINATION: CT PELVIS WITHOUT CONTRAST CLINICAL INFORMATION: Left hip pain. Unable to walk. Negative x-ray COMPARISON: Left hip radiographs 11/14/2021 TECHNIQUE: Axial images were obtained through the pelvis without the administration of intravenous contrast. Coronal and sagittal reformatted images were generated. This CT examination was performed using dose optimization techniques as appropriate, variously including the following: *Automated exposure control *Adjustment of mA and/or kV according to patient size (this includes techniques or standardized protocols for targeted exams where dose is matched to indication/reason for exam; i.e. extremities or head) *Use of iterative reconstruction technique DLP: 355 mGy-cm FINDINGS: PELVIS: No free pelvic fluid. Bladder prostate gland are grossly unremarkable. Since the sigmoid diverticulosis. No evidence of acute diverticulitis. Small fat-containing left inguinal hernia. Moderate vascular calcifications. No pelvic or inguinal lymphadenopathy. No appreciable hip joint effusions. No soft tissue fluid collection/hematoma. OSSEOUS STRUCTURES: No acute fracture or dislocation. No osseous lesion. No CT findings of femoral head avascular necrosis. Relatively advanced bilateral hip joint osteonecrosis with severe joint space narrowing, subchondral sclerosis, and large osteophytes. Chronic fragmentation of the posterior left acetabular rim. Pubic symphysis and sacroiliac joints are congruent and intact. Mild superior endplate compression fracture of L4, new since prior CT of 10/25/2020 with approximately 20% central vertebral body height loss, exact age uncertain. CT/CT pelvis wo con IMPRESSION: 1. Mild superior endplate compression fracture of L4, new since CT of 10/25/2020, exact age uncertain. Correlate with pain referable to this level on exam. 2. No additional fracture or dislocation. 2. Advanced bilateral hip joint osteoarthritis.
--- NOTE | ~2021-11-14 | XR_ITS ---
EXAMINATION: XR LUMBOSACRAL SPINE CLINICAL INFORMATION: Fall with pain, worse on the left side. COMPARISON: CT abdomen/pelvis 10/25/2020. TECHNIQUE: Three views of the lumbosacral spine. FINDINGS: Compression deformity at L1 is unchanged when compared to 10/25/2020. Mild superior endplate compression deformity at L4 is new since 10/25/2020. Additional compression deformities at T11 and T12 are increased. S-shaped scoliosis. No subluxation. Moderate to severe multilevel lumbar spondylosis leading to variously degrees of neural foraminal encroachment and canal narrowing. SI joints are symmetric. No significant soft tissue abnormality. XR/XR lumbar spine 2-3V IMPRESSION: 1. New mild superior compression deformity at L4. 2. Increased mild compression deformities at T11 and T12. 3. Unchanged severe compression deformity at L1. 4. No subluxation. 5. Moderate to severe lumbar spondylosis.
--- NOTE | ~2021-11-14 | XR_ITS ---
EXAMINATION: XR CHEST CLINICAL INFORMATION: Pain, fall. COMPARISON: CT abdomen/pelvis 10/25/2020. TECHNIQUE: 2 views of the chest were obtained. FINDINGS: Sternal wires and mediastinal surgical clips. Coronary stents/calcifications. Otherwise, normal appearance of the cardiomediastinal silhouette. No focal airspace opacity, pleural effusion or pneumothorax. Thoracic spondylosis. Redemonstration of severe compression deformity at L1, stable when compared to 10/25/2020. XR/XR chest 2V IMPRESSION: No acute cardiopulmonary findings. No acutely displaced rib fractures.
--- NOTE | ~2021-11-14 | CT_ITS ---
Indication: Fall with head injury EXAMINATION: CT brain, CT cervical spine. Axial imaging with coronal and sagittal reformatted images. This CT examination was performed using dose optimization techniques as appropriate, variously including the following: *Automated exposure control *Adjustment of mA and/or kV according to patient size (this includes techniques or standardized protocols for targeted exams where dose is matched to indication/reason for exam; i.e. extremities or head) *Use of iterative reconstruction technique. Radiation dose 750. Findings; CT brain; There is no midline shift. There is no mass effect. There is no hemorrhage. The basal cisterns appear patent. The posterior fossa risk grossly within normal limits. There is no extra-axial collection. There is atrophy and white matter ischemic changes here. There is no evidence for fracture on the bone windows. CT cervical spine; Straightening of the normal lordosis. This may be due to position or spasm. There is no acute fracture or dislocation. CT/CT cervical spine wo con IMPRESSION: Negative acute noncontrast CT of the brain. No fracture or dislocation of the cervical spine. Degenerative changes and reversal of normal lordosis is noted.
--- NOTE | ~2021-11-14 | CT_ITS ---
Indication: Fall with head injury EXAMINATION: CT brain, CT cervical spine. Axial imaging with coronal and sagittal reformatted images. This CT examination was performed using dose optimization techniques as appropriate, variously including the following: *Automated exposure control *Adjustment of mA and/or kV according to patient size (this includes techniques or standardized protocols for targeted exams where dose is matched to indication/reason for exam; i.e. extremities or head) *Use of iterative reconstruction technique. Radiation dose 750. Findings; CT brain; There is no midline shift. There is no mass effect. There is no hemorrhage. The basal cisterns appear patent. The posterior fossa risk grossly within normal limits. There is no extra-axial collection. There is atrophy and white matter ischemic changes here. There is no evidence for fracture on the bone windows. CT cervical spine; Straightening of the normal lordosis. This may be due to position or spasm. There is no acute fracture or dislocation. CT/CT head/brain wo con IMPRESSION: Negative acute noncontrast CT of the brain. No fracture or dislocation of the cervical spine. Degenerative changes and reversal of normal lordosis is noted.
[2021-11-14 17:46] VITALS: BP 136/70; BP 147/71; PULSE 66; PULSE 68; RESP 18; TEMP 36.8; O2SAT 96; O2SAT 98; BMI 26.0
--- NOTE | 2021-11-14 18:34 | ED.FALL ---
HPI - Fall General Chief Complaint: Fall Stated Complaint: FALL OOB 10 DAYS AGO,HIP/L LEG PAIN,UNABLE TO AMB Time Seen by Provider: 11/14/21 17:49 Source: patient, family ( at bedside) and EMS Mode of arrival: EMS Limitations: no limitations History of Present Illness HPI Narrative: 76-year-old male with a past medical history of CAD, enlarged thoracic aorta, hypertension and PVCs being followed by Dr. Okeefe currently on aspirin no other blood thinners presenting to the ED with complaints of bilateral hip pain worse on the left foot difficulty walking since he had a fall on 11/05/2021. He reports that he was sleeping and he woke up on the floor on his left side and since then he has been having this pain and difficulty walking. He reports that he can stand up although cannot really walk a few steps due to the pain. reports that he was having sciatic pain a few days prior to the fall. He reports he did hit his head although no loss of consciousness. He denies any dizziness, headaches, neck pain/injury/ stiffness, chest pain or shortness of breath, dyspnea on exertion, orthopnea, palpitations, paresthesias, nausea/vomiting/ diarrhea, constipation, black or bloody stools, abdominal pain/ injury, back pain/injury, any other extremity injury, focal weakness or any other symptoms complaints or concerns at this time. MD complaint: fall Onset (ago): day(s) (9) Fall from: out of bed Fall witnessed: no Place fall occurred: home Loss of consciousness: none Prolonged down time: no Symptoms prior to fall: none Location of injury: head and pelvis ( And bilateral hips) Severity: mild Quality: aching Associated symptoms (after fall): other ( difficulty walking) Related Data Home Medications Medication Instructions Recorded Confirmed aspirin 81 mg tablet,delayed 81 mg PO DAILY 07/28/20 07/23/21 release (Adult Low Dose Aspirin) multivitamin 1 tab PO DAILY 07/28/20 07/23/21 ibuprofen 400 mg tablet (IBU) 400 mg PO TID 07/23/21 07/23/21 omeprazole 40 mg capsule,delayed 40 mg PO DAILY 07/23/21 07/23/21 release Previous Rx's Medication Instructions Recorded isosorbide mononitrate 30 mg 30 mg PO DAILY 90 days #90 tabs 12/10/20 tablet,extended release 24 hr metoprolol succinate 50 mg 50 mg PO DAILY #90 tabs 06/08/21 tablet,extended release 24 hr atorvastatin 80 mg tablet 80 mg PO DAILY #90 tabs 10/16/21 Allergies Allergy/AdvReac Type Severity Reaction Status Date / Time No Known Allergies Allergy Verified 11/14/21 17:46 Review of Systems Review of Systems: Constitutional : No Weight loss, No Fever, No Chills, No Night Sweats, No Fatigue, No Malaise ENT/Mouth : No Hearing loss, No Ear Pain, No Nasal Congestion, No Sinus Pain, No Hoarseness, No sore throat, No Rhinorrhea, No Swallowing Difficulty Eyes: No Eye Pain, No Swelling, No Redness, No Foreign Body, No Discharge, No Vision Changes Cardiovascular : No Chest Pain, No SOB, No Dyspnea on Exertion, No Orthopnea, No Edema, No Palpitations Respiratory : No Cough, No Sputum, No Wheezing, No Smoke Exposure, No Dyspnea Gastrointestinal : No Nausea, No Vomiting, No Diarrhea, No Constipation, No abdominal Pain, No Hematochezia, No Melena Genitourinary : no irregular bleeding, No Dysuria, No Urinary Frequency, No Hematuria, No Urinary Incontinence, No Urgency, No Flank Pain, No Urinary Flow Changes, No Hesitancy Musculoskeletal : + bilateral hip pain and difficulty walking, no additional joint pain, No Myalgias, No Joint Swelling, no neck pain / injury, no back pain/injury Skin : No Skin Lesions, No rash Neuro : No Weakness, No Numbness, No Paresthesias, No Loss of Consciousness, No Dizziness, No Headache Psych : No Anxiety/Panic, No Depression, No SI/HI/AH/VH, No Social Issues, Heme/Lymph: No Bruising, No Bleeding,No Lymphadenopathy Endocrine : No Polyuria, No Polydipsia, No Temperature Intolerance Yes all other systems are reviewed and are negative [facility] Past Medical History Attestation statement: The following information was validated with the patient. Source: old records reviewed and nursing notes reviewed Medical History CAD (coronary artery disease) Enlarged thoracic aorta HTN (hypertension) PVCs (premature ventricular contractions) Surgical History History of esophagogastroduodenoscopy (EGD) Hx of CABG Hx of cardiac cath Stented coronary artery Family History Family History Father CVD (cardiovascular disease) Mother CVD (cardiovascular disease) Social History Social History Patient Tobacco Use Status: Never used Tobacco Advance Directives: No Advance Directives Information Provided: No Physical Exam Vital Signs: Vital Signs: Last Vital Signs Temp 98.2 F 11/14/21 17:46 Pulse 66 11/14/21 17:46 Resp 18 11/14/21 17:46 BP 147/71 H 11/14/21 17:46 Pulse Ox 96 11/14/21 17:46 O2 Del Method 11/14/21 17:46 BMI result Body Mass Index 26.0 vital signs have been reviewed as normal and appeared to be correct. Blood pressure 147/71. Heart rate normal. Respiration rate normal. Temperature normal. Oxygen saturation normal. Appearance: Alert. Oriented X3. No acute distress. Head: Normal external exam. Normocephalic. Atraumatic. No Boland signs noted. No raccoon eyes noted Eyes: PERRLA. EOMI. Conjunctiva and sclera normal. Eyelids normal. ENT: EAC normal. TM's Normal. No septal hematoma noted. No hemotympanum noted. Pharynx normal. Uvula midline. Moist mucous membranes. No lesions/ulcerations or masses noted on the tongue. Normal voice. No trismus noted. No drooling noted. No muffled voice noted. Neck: Normal inspection. Neck supple. FROM. No adenopathy. Thyroid Normal. No tracheal deviation noted. No crepitus is noted. No meningeal signs. No neck mass noted. No signs of trauma noted. CVS: Normal heart rate and rhythm. Heart sound normal. Pulses normal throughout. No murmurs/rales/gallops. Respiratory: No respiratory distress. Painless inspiration. Breath sounds normal. No wheezes/rales/rhonchi noted. Chest nontender. No crepitus is noted. No signs of trauma noted. No accessory muscle usage noted or decreased air movement noted. Abdomen: Soft and nontender. Bowel sounds normal in all 4 quadrants. No distention noted. No organomegaly noted. No visible injury noted. Back: No CVA tenderness. Full range of motion noted. Nontender. No signs of trauma. Patient neuro intact bilaterally and distally on all 4 extremities. Patient's reflexes intact bilaterally and distally on all 4 extremities. No rashes/lesion/induration/fluctuance or signs of infection noted. Skin: Skin warm and dry. Normal skin color. Normal skin turgor. No rashes/lesions/lacerations noted. Extremities: patient reports pain with flexion and abduction to the left hip. Reports no pain with extension and abbuction of the left hip. He does have full range of motion no obvious ligamentous or tendon injury noted or deformities. No rashes are noted. Patient reports mild pain to the right hip although has full range of motion no obvious ligamentous or tendon injury noted. He is moving bilateral knees and his feet and toes no obvious deformities. Otherwise no lower extremity edema or calf tenderness noted and all other extremities exhibit normal range of motion nontender. Neuro: Oriented X 3. No motor deficit. No sensory deficit. Reflexes normal. No focal neuro deficits noted. CN's II-XII intact bilaterally?patient reports he is having trouble walking therefore gait not tested at this time. Will re-examine after imaging Vascular: + radial pulses/+ 2 distal pedal pulses/+2 dorsalis pedis b/l. Normal cap refill. No cyanosis noted to upper extremity nails and lower extremity toes nails. Course Course Course Narrative: 18pm - 76-year-old male with a past medical history of CAD, enlarged thoracic aorta, hypertension and PVCs being followed by Dr. Okeefe currently on aspirin no other blood thinners presenting to the ED with complaints of bilateral hip pain worse on the left foot difficulty walking since he had a fall on 11/05/2021. He reports that he was sleeping and he woke up on the floor on his left side and since then he has been having this pain and difficulty walking. He reports that he can stand up although cannot really walk a few steps due to the pain. reports that he was having sciatic pain a few days prior to the fall. He reports he did hit his head although no loss of consciousness. Plan: X-ray of left hip, chest x-ray, labs, CT scan of brain/ cervical spine without contrast and re-evaluate. Reevaluation(s) Reevaluation #1: - labs reviewed patient with mild anemia with an H&H of 12.5/37.3. - BUN/creatinine 34/1.66 this is new for the patient therefore at this time will provide 2 L of IV fluids and re-evaluate the patient's kidney function - otherwise all other labs are within normal limits. - Chest x-ray within normal limits no acute processes noted. - Left hip and pelvis x-ray negative for any acute processes only chronic changes such as arthritis. - CT scan of brain/cervical spine without contrast revealed chronic changes no acute processes were noted. - Therefore I ordered a lumbar spine x-ray despite the patient denying any lower back pain And pelvis CT and re-evaluate. Time: 19:31 Reevaluation #2: - pelvis CT revealed a mild superior endplate compression fracture of L4 new since CT of 10/25/2020. 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 - although lumbar spine x-ray revealed L1/L4/T11/T12 fractures no subluxation and moderate to severe lumbar spondylosis no other acute processes. - therefore I attempted to admit the patient for BASSAM although they reported that the patient can be hydrated and BUN and creatinine can be repeated which this is true therefore 2 L of IV fluids were ordered and he is receiving this now. I discussed this case with the patient and his at bedside and I explained to him that he should not go home due to the can not take care of him at home due to she has her own medical issues and she is about to receive physical therapy herself therefore I offered short-term rehab and they accepted therefore patient will be case management/PT and he will need repeat labs tomorrow morning I placed an order at this time. I also placed an order for oxycodone every 6 hours, Tylenol and Colace of the patient does not get constipated. Patient with at bedside understand agree this plan. Time: 20:36 MDM - Fall Medical Records Attestation: I reviewed the patient's medical records. Lab Data Attestation: I reviewed the patient's lab results. Result diagrams: 11/14/21 18:37 11/14/21 18:37 Labs: Lab Results 11/14/21 11/14/21 11/14/21 Range/Units 18:37 18:37 18:37 WBC 7.9 (4.8-10.8) X10*3/uL RBC 3.58 L (4.60-5.80) X10*6/uL Hgb 12.5 L (14.0-18.0) g/dl Hct 37.3 L (42.0-52.0) % MCV 104.2 H (80.0-98.0) fL MCH 34.9 H (27.0-33.0) pg MCHC 33.5 (31.0-36.0) g/dl RDW 12.0 (11.0-16.0) % Plt Count 235 (160-400) X10*3/uL MPV 10.1 (9.4-12.4) fL Immature Gran % (Auto) 0.4 (0.0-0.4) % Neut % (Auto) 65.0 (45-73) % Lymph % (Auto) 22.0 (20-40) % Martin % (Auto) 8.2 (2-11) % Eos % (Auto) 3.9 (0-4) % Baso % (Auto) 0.5 (0-2) % Lymph # (Auto) 1.7 (1.2-4.9) X10*3/uL Martin # (Auto) 0.7 (0.1-1.2) X10*3/uL Eos # (Auto) 0.3 (0.0-0.4) X10*3/uL Baso # (Auto) 0.0 (0.0-0.2) X10*3/uL Abs Immat Gran (auto) 0.03 (0.00-0.03) X10*3/uL Absolute Neuts (auto) 5.1 (2.0-8.3) x10*3/uL Absolute Nucleated RBC 0.000 (0.0-0.012) X10*3/uL Nucleated RBC % (auto) 0.0 (0.0-0.2) /100WBC PT 11.6 (10.0-13.1) SEC INR 1.0 (0.9-1.1) Sodium 140 (135-145) mmol/L Potassium 4.2 (3.3-5.1) mmol/L Chloride 105 (96-108) mmol/L Carbon Dioxide 25 (22-29) mmol/L Anion Gap 14 (12-20) BUN 34 H (9-16) mg/dL Creatinine 1.60 H (0.5-1.4) mg/dL Estim Creat Clear Calc 36.8 Estimated GFR 42 Random Glucose 107 (60-115) mg/dL Calcium 9.2 (8.4-10.2) mg/dL Magnesium 2.2 (1.6-2.6) mg/dL Total Bilirubin 0.6 (0.0-1.0) mg/dL AST 21 (5-37) U/L ALT 22 (0-40) U/L Alkaline Phosphatase 63 (39-117) U/L Total Creatine Kinase 71 (38-174) U/L Total Protein 6.9 (6.5-8.0) g/dL Albumin 4.1 (3.5-5.0) g/dL Imaging Data CT scan of brain/ cervical spine without contrast: Attestation: I personally reviewed and interpreted this imaging study as follows: Radiologist's impression: CT brain; There is no midline shift. There is no mass effect. There is no hemorrhage. The basal cisterns appear patent. The posterior fossa risk grossly within normal limits. There is no extra-axial collection. There is atrophy and white matter ischemic changes here. There is no evidence for fracture on the bone windows. CT cervical spine; Straightening of the normal lordosis. This may be due to position or spasm. There is no acute fracture or dislocation. CT/CT head/brain wo con IMPRESSION: Negative acute noncontrast CT of the brain. ? No fracture or dislocation of the cervical spine. Degenerative changes and reversal of normal lordosis is noted. left hip x-ray: Attestation: I personally reviewed and interpreted this imaging study as follows: Radiologist's impression: FINDINGS: Single view pelvis also obtained. No fracture on the pelvic image. Degenerative changes are noted. 2. Detailed views of the left hip do not show convincing evidence for an acute fracture or dislocation. XR/XR hip LT w PEL1V IMPRESSION: Degenerative changes. No convincing evidence for an acute fracture or dislocation. Chest x-ray: Attestation: I personally reviewed and interpreted this imaging study as follows: Radiologist's impression: FINDINGS: Sternal wires and mediastinal surgical clips. Coronary stents/calcifications. Otherwise, normal appearance of the cardiomediastinal silhouette. No focal airspace opacity, pleural effusion or pneumothorax. Thoracic spondylosis. Redemonstration of severe compression deformity at L1, stable when compared to 10/25/2020. XR/XR chest 2V IMPRESSION: No acute cardiopulmonary findings. ? No acutely displaced rib fractures. Lumbar spine x-ray: Attestation: I personally reviewed and interpreted this imaging study as follows: Radiologist's impression: FINDINGS: Compression deformity at L1 is unchanged when compared to 10/25/2020. Mild superior endplate compression deformity at L4 is new since 10/25/2020. Additional compression deformities at T11 and T12 are increased. S-shaped scoliosis. No subluxation. Moderate to severe multilevel lumbar spondylosis leading to variously degrees of neural foraminal encroachment and canal narrowing. SI joints are symmetric. No significant soft tissue abnormality. XR/XR lumbar spine 2-3V IMPRESSION: 1.? New mild superior compression deformity at L4. 2.? Increased mild compression deformities at T11 and T12. 3.? Unchanged severe compression deformity at L1. 4.? No subluxation. 5.? Moderate to severe lumbar spondylosis. Pelvis CT: Attestation: I personally reviewed and interpreted this imaging study as follows: Radiologist's impression: FINDINGS: PELVIS: No free pelvic fluid. Bladder prostate gland are grossly unremarkable. Since the sigmoid diverticulosis. No evidence of acute diverticulitis. Small fat-containing left inguinal hernia. Moderate vascular calcifications. No pelvic or inguinal lymphadenopathy. No appreciable hip joint effusions. No soft tissue fluid collection/hematoma.? OSSEOUS STRUCTURES: No acute fracture or dislocation. No osseous lesion. No CT findings of femoral head avascular necrosis. Relatively advanced bilateral hip joint osteonecrosis with severe joint space narrowing, subchondral sclerosis, and large osteophytes. Chronic fragmentation of the posterior left acetabular rim. Pubic symphysis and sacroiliac joints are congruent and intact. Mild superior endplate compression fracture of L4, new since prior CT of 10/25/2020 with approximately 20% central vertebral body height loss, exact age uncertain. CT/CT pelvis wo con IMPRESSION: ? 1. Mild superior endplate compression fracture of L4, new since CT of 10/25/2020, exact age uncertain. Correlate with pain referable to this level on exam. 2. No additional fracture or dislocation. 2. Advanced bilateral hip joint osteoarthritis.? Critical Care Time Critical Care Time Critical Care Time: Yes Total Critical Care Time: 60 Attestation: I personally attest to this time spent taking care of the patient Discharge Plan Discharge Clinical Impression: BASSAM (acute kidney injury), Fall, Closed fracture of T11 vertebra, T12 compression fracture, Closed compression fracture of L1 vertebra, Closed compression fracture of L4 vertebra Patient Disposition: Still a Patient Prescriptions: No Action isosorbide mononitrate 30 mg tablet extended release 24 hr 30 mg PO DAILY 90 Days Qty: 90 3RF metoprolol succinate 50 mg tablet extended release 24 hr 50 mg PO DAILY Qty: 90 1RF atorvastatin 80 mg tablet 80 mg PO DAILY Qty: 90 3RF aspirin [Adult Low Dose Aspirin] 81 mg tablet,delayed release (DR/EC) 81 mg PO DAILY multivitamin Tablet 1 tab PO DAILY omeprazole 40 mg capsule,delayed release(DR/EC) 40 mg PO DAILY ibuprofen [IBU] 400 mg tablet 400 mg PO TID
[2021-11-14 18:44] LABS: MANUAL DIFF FLAG NO
[2021-11-14 18:46] LABS: Basophils Percent Auto 0.5 % (0-2); Eosinophils Absolute Auto 0.3 X10*3/uL (0.0-0.4); Eosinophils Percent Auto 3.9 % (0-4); Hematocrit 37.3 % (42.0-52.0); Hemoglobin 12.5 g/dl (14.0-18.0); Imm Gran Abs Auto 0.03 X10*3/uL (0.00-0.03); Imm Gran Pct Auto 0.4 % (0.0-0.4); Lymphocytes Absolute Auto 1.7 X10*3/uL (1.2-4.9); Mean Corpuscular HGB Conc 33.5 g/dl (31.0-36.0); Mean Corpuscular Hemoglobin 34.9 pg (27.0-33.0); Mean Corpuscular Volume 104.2 fL (80.0-98.0); Mean Platelet Volume 10.1 fL (9.4-12.4); Monocytes Absolute Auto 0.7 X10*3/uL (0.1-1.2); Monocytes Percent Auto 8.2 % (2-11); Neutrophils Absolute Auto 5.1 x10*3/uL (2.0-8.3); Platelet Count 235 X10*3/uL (160-400); Red Blood Count 3.58 X10*6/uL (4.60-5.80); White Blood Count 7.9 X10*3/uL (4.8-10.8)
[2021-11-14 18:51] LABS: Prothrombin Time 11.6 SEC (10.0-13.1)
[2021-11-14 19:02] LABS: Alanine Aminotransferase 22 U/L (0-40); Albumin Level 4.1 g/dL (3.5-5.0); Alkaline Phosphatase 63 U/L (39-117); Anion Gap 14 (12-20); Aspartate Amino Transferase 21 U/L (5-37); Bilirubin Total 0.6 mg/dL (0.0-1.0); Blood Urea Nitrogen 34 mg/dL (9-16); Calcium 9.2 mg/dL (8.4-10.2); Carbon Dioxide 25 mmol/L (22-29); Chloride 105 mmol/L (96-108); Creatinine Clr Calc Pharmacy 36.8; Estimated Glomerular Filt Rate 42; Glucose Random 107 mg/dL (60-115); Magnesium 2.2 mg/dL (1.6-2.6); Potassium 4.2 mmol/L (3.3-5.1); Sodium 140 mmol/L (135-145); Total Protein 6.9 g/dL (6.5-8.0)
[2021-11-14] MEDS: 0.9 % Sodium Chloride 1,000 ML 999 ML IVCONT ×3 (19:48→23:50)
--- NOTE | 2021-11-14 19:50 | PC.NURSE ---
pt a&ox3, vss, CT/XR reports pending, ivf started, 20G left AC. no new orders at this time.
[2021-11-14] MEDS: Acetaminophen 325 MG TABLET 975 MG PO (23:50)
[2021-11-14 23:52] VITALS: BP 157/70; PULSE 66; RESP 18; O2SAT 96
[2021-11-15] VITALS (9 sets, daily range): BP systolic 120–171; BP diastolic 57–82; PULSE 56–81; RESP 12–20; TEMP 36.6–36.9; O2SAT 96–97
[2021-11-15 01:52] LABS: COVID-19 Test Negative (Negative)
--- NOTE | 2021-11-15 03:02 | PC.NURSE ---
report received from MILTON Holguin
--- NOTE | 2021-11-15 03:04 | PC.NURSE ---
Addendum entered by Mary Moon 11/15/21 07:01: report given to MILTON Irving Original Note: report received from MILTON Holguin
[2021-11-15] MEDS: Acetaminophen 325 MG TABLET 975 MG PO ×2 (06:50→20:12)
--- NOTE | 2021-11-15 10:10 | MHC.CM.PN ---
Met with pt and spouse Claudine. Pt resides at home without services but uses a walker and urinal. Pt has had several falls and is unsteady. Recent imaging + for lower lumber fx's. Pts spouse unable to care for pt d/t her own physical limitations. Discussed services including private [facility] to which Claudine felt was not an option and wanted to pursue placement. PT eval to occur on 11/16. Acute and subacute rehab referrals placed: HCP completed and uploaded. Pt and spouse aware of boarding status and limited STR beds in the community. CM to follow
--- NOTE | 2021-11-15 10:39 | PHA.MEDREC ---
Pharmacy Consult ? Medication Reconciliation Pharmacy has completed the medication reconciliation. Spoke with patient and in overflow
[2021-11-15 12:28] LABS: Anion Gap 12 (12-20); Blood Urea Nitrogen 21 mg/dL (9-16); Calcium 8.7 mg/dL (8.4-10.2); Carbon Dioxide 24 mmol/L (22-29); Chloride 106 mmol/L (96-108); Creatinine Clr Calc Pharmacy 51.6; Estimated Glomerular Filt Rate > 60; Glucose Random 92 mg/dL (60-115); Potassium 3.9 mmol/L (3.3-5.1); Sodium 138 mmol/L (135-145)
[2021-11-15] MEDS: oxyCODONE HCl ER 10 MG TAB.ER.12H PO (13:09)
[2021-11-15] MEDS: Aspirin Enteric Coated 81 MG TABLET.DR PO (13:09)
[2021-11-15] MEDS: Isosorbide Mononitrate 30 MG TAB.ER.24H PO (13:10)
[2021-11-15] MEDS: Metoprolol Succinate ER 50 MG TAB.ER.24H PO (13:12)
--- NOTE | 2021-11-15 18:00 | PC.NURSE ---
PT ALERT, VSS, DENIES PAIN. MEDS GIVEN DOCUMENTED, PT'S AT HIS BEDSIDE, NO COMPLAINTS.
[2021-11-15] MEDS: Atorvastatin Calcium 80 MG TABLET PO (20:12)
[2021-11-16] MEDS: Cyclobenzaprine HCl 10 MG TABLET PO ×2 (02:28→14:34)
[2021-11-16 06:00] VITALS: RESP 18
[2021-11-16] MEDS: Acetaminophen 325 MG TABLET 975 MG PO ×3 (06:14→22:51)
[2021-11-16 07:55] VITALS: BP 171/76; PULSE 69; O2SAT 97
[2021-11-16 09:21] VITALS: BP 159/79; PULSE 71; RESP 17; TEMP 36.3; O2SAT 98
[2021-11-16] MEDS: Metoprolol Succinate ER 50 MG TAB.ER.24H PO (09:47)
[2021-11-16] MEDS: Isosorbide Mononitrate 30 MG TAB.ER.24H PO (09:47)
[2021-11-16] MEDS: Aspirin Enteric Coated 81 MG TABLET.DR PO (09:47)
[2021-11-16 10:47] LABS: Appearance Urine CLEAR; Color Urine YELLOW; Glucose Urine UA NEG (NEG); Leukocyte Esterase Urine NEG (NEG); Nitrite Urine NEG (NEG); UACC Culture Trigger NO; Urine Blood TRACE (NEG); Urine Ketones NEG (NEG); Urine Protein NEG (NEG-TRACE)
[2021-11-16 11:07] LABS: Mucus Urine TRACE /LPF; RBC Urine 0-2 /HPF (0); WBC Urine 0 /HPF (0-4)
--- NOTE | 2021-11-16 12:37 | PC.NURSE ---
pt resting in bed. PT down to see pt this morning. pt reports he does not want to take hiis scheduled oxycodone any more as he got high and confused when he took it yesterday, reports hallucinations. pt A&Ox3 at this time. no complaints. plan for STR. , Claudine, involved in pt care and plan
--- NOTE | 2021-11-16 13:19 | MHC.CM.PN ---
CM SPOKE WITH PTS REGARDING STR PLACEMENT SHE WAS INFORMED [facility] IS THE ONLY [facility] OFFERING AN STR BED AT THIS TIME SHE IS AWARE WE ARE AWAITING AUTH AND HE WILL TRANSFER ONCE IT IS OBTAINED PT WILL NEED BLS TRANSPORT-BOOKED ON HOLD
[2021-11-16 15:01] VITALS: BP 121/66; PULSE 70; RESP 18; TEMP 36.3; O2SAT 97
--- NOTE | 2021-11-16 16:52 | MHC.CM.ED ---
Awaiting insurance auth from [employer] for STR at [facility]. Hopefully 11/17. Will check in am. Transport booked, but on hold.
[2021-11-16 20:16] VITALS: BP 147/65; PULSE 68; RESP 14; TEMP 36.6; O2SAT 98
[2021-11-16] MEDS: Atorvastatin Calcium 80 MG TABLET PO (20:20)
[2021-11-17 06:00] VITALS: BP 175/101; PULSE 62; RESP 16; TEMP 36.6; O2SAT 96
[2021-11-17] MEDS: Acetaminophen 325 MG TABLET 975 MG PO ×2 (06:09→13:46)
[2021-11-17 07:59] VITALS: BP 135/80; PULSE 65; RESP 16; TEMP 36.4; O2SAT 95
[2021-11-17] MEDS: Aspirin Enteric Coated 81 MG TABLET.DR PO (09:03)
[2021-11-17] MEDS: Isosorbide Mononitrate 30 MG TAB.ER.24H PO (09:03)
[2021-11-17] MEDS: Metoprolol Succinate ER 50 MG TAB.ER.24H PO (09:07)
--- NOTE | 2021-11-17 10:50 | PC.NURSE ---
pt sitting up in bed c/o feeling dizzy, diaphoretic and slight blurry vision denies any chest pain. ortho vs done lying 70/41-54-97%, sitting 83/64-50. mlp(pedro pablo) aware, vs rechecked after 10mins lying 136/70-69. pt is a/o x 3 no sob/akua noted.
--- NOTE | 2021-11-17 11:20 | PC.NURSE ---
mlp (pedro pablo) at bedside earlier, ortho vs lying 142/75-67, sitting 101/56-74, standing 93/54-63 c/o dizziness and slightly diaphoretic. pt returned to bed. spouse at bedside. pt/ aware of plan of care.
[2021-11-17] MEDS: 0.9 % Sodium Chloride 1,000 ML 999 ML IV (11:56)
[2021-11-17 12:10] LABS: MANUAL DIFF FLAG NO
[2021-11-17 12:11] LABS: Basophils Percent Auto 0.4 % (0-2); Eosinophils Absolute Auto 0.3 X10*3/uL (0.0-0.4); Eosinophils Percent Auto 3.6 % (0-4); Hematocrit 39.4 % (42.0-52.0); Hemoglobin 13.3 g/dl (14.0-18.0); Imm Gran Abs Auto 0.03 X10*3/uL (0.00-0.03); Imm Gran Pct Auto 0.3 % (0.0-0.4); Lymphocytes Absolute Auto 1.6 X10*3/uL (1.2-4.9); Lymphocytes Percent Auto 16.5 % (20-40); Mean Corpuscular HGB Conc 33.8 g/dl (31.0-36.0); Mean Corpuscular Hemoglobin 34.8 pg (27.0-33.0); Mean Corpuscular Volume 103.1 fL (80.0-98.0); Mean Platelet Volume 9.8 fL (9.4-12.4); Monocytes Absolute Auto 0.6 X10*3/uL (0.1-1.2); Monocytes Percent Auto 6.1 % (2-11); Neutrophils Absolute Auto 6.9 x10*3/uL (2.0-8.3); Neutrophils Percent Auto 73.1 % (45-73); Platelet Count 245 X10*3/uL (160-400); Red Blood Count 3.82 X10*6/uL (4.60-5.80); Red Cell Distribution Width 11.9 % (11.0-16.0); White Blood Count 9.5 X10*3/uL (4.8-10.8)
[2021-11-17 12:24] LABS: Anion Gap 13 (12-20); Blood Urea Nitrogen 17 mg/dL (9-16); Carbon Dioxide 25 mmol/L (22-29); Chloride 104 mmol/L (96-108); Creatinine Clr Calc Pharmacy 50.7; Estimated Glomerular Filt Rate > 60; Glucose Random 122 mg/dL (60-115); Potassium 4.1 mmol/L (3.3-5.1); Sodium 138 mmol/L (135-145)
[2021-11-17 13:57] VITALS: BP 141/73; PULSE 64; RESP 16; TEMP 36.3; O2SAT 96
--- NOTE | 2021-11-17 14:25 | PC.NURSE ---
pts vitals 159/75 lying. 157/76 sitting. pt was unable to stand because of pain in hip. pt stated that he did not feel dizzy from lying to sitting.
[2021-11-17 18:16] VITALS: BP 136/73; PULSE 65; RESP 16; TEMP 36.8; O2SAT 98
== END 2021-11-17 19:21 | disposition skilled nursing facility (03) ==
PROVIDERS: Nurse Practitioner Family; Physician Assistant Medical; Emergency Provider Emergency Medicine; PCP Internal Medicine
DX: S32.048A Other fracture of fourth lumbar vertebra, initial encounter for closed fracture (principal); S22.088A Other fracture of T11-T12 vertebra, initial encounter for closed fracture; W06.XXXA Fall from bed, initial encounter; I95.1 Orthostatic hypotension; M47.895 Other spondylosis, thoracolumbar region; N17.9 Acute kidney failure, unspecified; M16.0 Bilateral primary osteoarthritis of hip; M25.552 Pain in left hip; M25.551 Pain in right hip; D64.9 Anemia, unspecified; I10 Essential (primary) hypertension; R26.2 Difficulty in walking, not elsewhere classified; I25.10 Atherosclerotic heart disease of native coronary artery without angina pectoris; Z91.81 History of falling; Z79.82 Long term (current) use of aspirin; Z79.02 Long term (current) use of antithrombotics/antiplatelets; Z98.61 Coronary angioplasty status; Y93.89 Activity, other specified; Y92.092 Bedroom in other non-institutional residence as the place of occurrence of the external cause; Y99.9 Unspecified external cause status
CPT/HCPCS: 36415; 70450; 71046; 72100; 72125; 72192; 73502; 80048; 80053; 81001; 82550; 83735; 85025; 85610; 87635; 96360; 96361; 97162; 97166; 99285

== ENCOUNTER 2021-12-16 13:24 | Outpatient (REF) | payer MEDICARE, SELFPAY ==
--- NOTE | ~2021-12-16 | MM_ITS ---
EXAMINATION: DXA VERTEBRAL FRACTURE ASSESSMENT CLINICAL INFORMATION: Compression fracture COMPARISON: Lumbosacral spine study of 11/14/2021 TECHNIQUE: Your patient completed a vertebral fracture assessment using the [employer] DXA system (software version: 14.10) manufactured by [employer]. The following summarizes the results of our evaluation. LVA MORPHOMETRY RESULTS: Evaluation of the thoracolumbar spine from T4 through L5 was performed. Image quality is good. There is a severe biconcave fracture of the L1 vertebral body of greater than 50%. The anterior to posterior ratio Z score was -4.7 There is a moderate biconcave fracture of the L4 vertebral body visually with approximately 30% loss of height in its middle aspect. By quantitative evaluation of the L4 vertebral body, it was was graded as severe. The AP ratio Z score was -2.7. MM/XR DEXA vertrebral fracture IMPRESSION: Compression fractures of the L1 and L4 vertebral bodies which quantitatively were graded as severe biconcavity. RECOMMENDATIONS: All patients should ensure an adequate intake of dietary calcium (1200 mg/d) and vitamin D (400-800 IU/d). Effective therapies are now available in the form of bisphosphonates, (alendronate, ibandronate, risedronate, zoledronic acid), antiresorptive agents (calcitonin, estrogen+progesterone and raloxifene) and anabolic agent (teriparatide). These therapies may reduce vertebral, hip and other fractures by up to 50%. FOLLOW-UP: People with diagnosed cases of osteoporosis, high risk for fracture, or current vertebral fractures should have regular bone mineral density tests. The frequency of follow-up vertebral fracture assessment tests should be determined based on clinical circumstances. Often times, testing frequency will be based on rapidly progressing disease, or the addition or elimination of therapy to treat the disease.
== END 2021-12-16 13:25 | disposition home or self-care (01) ==
LOC: HO.MAMMO 13:24
PROVIDERS: PCP Internal Medicine; Visit Provider Internal Medicine
DX: S22.000A Wedge compression fracture of unspecified thoracic vertebra, initial encounter for closed fracture (principal)
CPT/HCPCS: 77086

== ENCOUNTER 2021-12-24 09:38 | Outpatient (REF) | payer MEDICARE, SELFPAY ==
[2021-12-24 11:21] LABS: MANUAL DIFF FLAG NO
[2021-12-24 11:30] LABS: Basophils Absolute Auto 0.1 X10*3/uL (0.0-0.2); Basophils Percent Auto 0.6 % (0-2); Eosinophils Absolute Auto 0.3 X10*3/uL (0.0-0.4); Hematocrit 41.5 % (42.0-52.0); Hemoglobin 13.8 g/dl (14.0-18.0); Imm Gran Abs Auto 0.04 X10*3/uL (0.00-0.03); Imm Gran Pct Auto 0.5 % (0.0-0.4); Lymphocytes Absolute Auto 2.1 X10*3/uL (1.2-4.9); Lymphocytes Percent Auto 24.2 % (20-40); Mean Corpuscular HGB Conc 33.3 g/dl (31.0-36.0); Mean Corpuscular Hemoglobin 35.1 pg (27.0-33.0); Mean Corpuscular Volume 105.6 fL (80.0-98.0); Mean Platelet Volume 10.9 fL (9.4-12.4); Monocytes Absolute Auto 0.7 X10*3/uL (0.1-1.2); Neutrophils Absolute Auto 5.4 x10*3/uL (2.0-8.3); Neutrophils Percent Auto 62.7 % (45-73); Platelet Count 262 X10*3/uL (160-400); Red Blood Count 3.93 X10*6/uL (4.60-5.80); Red Cell Distribution Width 12.5 % (11.0-16.0); White Blood Count 8.5 X10*3/uL (4.8-10.8)
[2021-12-24 11:56] LABS: Alanine Aminotransferase 24 U/L (0-40); Albumin Level 4.5 g/dL (3.5-5.0); Alkaline Phosphatase 75 U/L (39-117); Anion Gap 14 (12-20); Aspartate Amino Transferase 23 U/L (5-37); Bilirubin Total 0.8 mg/dL (0.0-1.0); Blood Urea Nitrogen 19 mg/dL (9-16); Calcium 9.7 mg/dL (8.4-10.2); Carbon Dioxide 26 mmol/L (22-29); Chloride 102 mmol/L (96-108); Cholesterol 118 mg/dL; Estimated Glomerular Filt Rate > 60; Glucose Fasting 102 mg/dL (60-99); HDL Cholesterol 43 mg/dL; LDL Cholesterol Calculated 42 mg/dl; Potassium 4.2 mmol/L (3.3-5.1); Sodium 138 mmol/L (135-145); Total Protein 7.4 g/dL (6.5-8.0); Triglycerides 167 mg/dL
== END 2021-12-24 09:39 | disposition home or self-care (01) ==
LOC: HO.HMGCLDS 09:38
PROVIDERS: PCP Internal Medicine; Visit Provider Internal Medicine
DX: I25.10 Atherosclerotic heart disease of native coronary artery without angina pectoris (principal); I10 Essential (primary) hypertension; E78.00 Pure hypercholesterolemia, unspecified; R35.1 Nocturia; Z12.5 Encounter for screening for malignant neoplasm of prostate
CPT/HCPCS: 36415; 80053; 80061; 84153; 85025

== ENCOUNTER 2021-12-30 13:38 | Outpatient (REF) | payer MEDICARE, SELFPAY ==
--- NOTE | ~2021-12-30 | MM_ITS ---
EXAMINATION: BONE DENSITOMETRY CLINICAL INDICATION: Vertebral fracture. COMPARISON: This is the patient's baseline examination. TECHNIQUE: Using a [employer] 28 DXA System (software version: 13.1) manufactured by [employer], dual-energy x-ray absorptiometry was performed of the lumbar spine and left hip. The images are of good technical quality. Summary results are attached. FINDINGS: AP SPINE L1-L4: BMD 1.086 g/cm2, Z-score -0.4, T-score -1.1, osteopenia. LEFT FEMUR, NECK: BMD 0.886 g/cm2, Z-score 0.1, T-score -1.4, osteopenia. LEFT FEMUR, TOTAL: BMD 0.892 g/cm2, Z-score -0.3, T-score -1.5, osteopenia. IDENTIFIED RISK FACTORS: Osteoporosis, Thiazide, low calcium intake, history of fracture (adult), height loss, recurrent falls, family history (parent hip fracture). HISTORY OF FRACTURE: Spine. MEDICATIONS: None listed. MM/XR DEXA axial skeleton IMPRESSION: 1. DIAGNOSIS: Osteopenia based on the lowest T-score value of -1.5 in the total femur applying World Health Organization criteria. 2. 10-YEAR FRACTURE RISK PREDICTION, FRAX: Major osteoporotic fracture (clinical spine, forearm, hip or shoulder) 20.5%. Hip fracture 13.3%. 3. Treatment Recommendations: NOF guidelines recommend consideration for treatment in postmenopausal women and men age 50 and older presenting with the following: -A hip or vertebral (clinical or morphometric) fracture. -T-score less than or equal to -2.5 at the femoral neck or spine after appropriate evaluation to exclude secondary causes. -Low bone mass at the hip or spine and a 10-year fracture probability by FRAX of greater than or equal to 3% for hip fracture or greater than or equal to 20% for major osteoporotic fracture based on the [place] adapted WHO algorithm. 4. Other Recommendations: All treatment decisions require clinical judgment and consideration of individual patient factors, including patient preferences, comorbidities, previous drug use, risk factors not captured in the FRAX model (e.g. frailty, falls, vitamin D deficiency, increased bone turnover, interval significant decline in bone density) and possible under or overestimation of fracture risk by FRAX. Additional medical evaluation for secondary cause of low bone mineral density may be appropriate. FUTURE SCAN RECOMMENDATION: People with diagnosed cases of osteoporosis or at high risk for fracture should have regular bone mineral density tests. For patients eligible for Medicare, routine testing is allowed once every 2 years. The testing frequency can be increased to one year for patients who have rapidly progressing disease, those who are receiving or discontinuing medical therapy to restore bone mass, or have additional risk factors.
== END 2021-12-30 13:39 | disposition home or self-care (01) ==
LOC: HO.MAMMO 13:38
PROVIDERS: PCP Internal Medicine; Visit Provider Internal Medicine
DX: Z13.820 Encounter for screening for osteoporosis (principal); S22.000A Wedge compression fracture of unspecified thoracic vertebra, initial encounter for closed fracture; M81.0 Age-related osteoporosis without current pathological fracture; Z87.81 Personal history of (healed) traumatic fracture; R29.6 Repeated falls
CPT/HCPCS: 77080

== ENCOUNTER 2022-01-30 08:10 | Inpatient (IN) | payer MEDICARE, SELFPAY ==
--- NOTE | ~2022-01-30 | XR_ITS ---
EXAMINATION: XR CHEST CLINICAL INFORMATION: Chest pain. COMPARISON: 11/14/2021 chest radiographs. TECHNIQUE: Frontal view of the chest was obtained. FINDINGS: No significant abnormality is noted involving the heart, lungs, mediastinum, bony thorax or soft tissues. Multilevel sternotomy wires are intact. XR/XR chest 1V IMPRESSION: No acute cardiopulmonary process.
[2022-01-30 08:11] VITALS: BP 129/62; PULSE 65; RESP 18; TEMP 37.1; O2SAT 98; BMI 25.2
--- NOTE | 2022-01-30 09:11 | ECG_ITS ---
Test Reason : ARRYTHMIA Blood Pressure : / mmHG Vent. Rate : 062 BPM Atrial Rate : 062 BPM P-R Int : 256 ms QRS Dur : 102 ms QT Int : 416 ms P-R-T Axes : 019 -07 -33 degrees QTc Int : 422 ms Poor data quality, interpretation may be adversely affected Sinus rhythm with 1st degree A-V block ST & T wave abnormality, consider inferior ischemia Abnormal ECG When compared with ECG of 25-OCT-2020 09:59, Premature ventricular complexes are no longer Present Premature atrial complexes are no longer Present SC interval has increased ST more depressed Inferior leads T wave inversion more evident in Inferior leads Referred By: Henny Cerda Electronically Signed By:DARWIN HINOJOSA
--- NOTE | 2022-01-30 09:12 | ED_ITS ---
HPI - Chest Pain General Chief Complaint: Arrhythmia/Palpitations Stated Complaint: rapid heart beat palpations Time Seen by Provider: 01/30/22 09:01 Source: patient, family and old records reviewed Mode of arrival: ambulatory Limitations: no limitations History of Present Illness HPI narrative: 76 y/o male with history of CABG x4 with residual disease on dual antianginal therapy, PVC's, HTN, recently diagnosed L1 compression fracture who presents to the ER with worsening substernal, nonradiation exertional chest pains for the last 2 weeks. He reports even walking a few feet will reproduce his chest pains and it takes several minutes for him to recover. He has had SL nitro in his pocket for years but never had to use it. He has not used it for any of these episodes in the last 2 weeks. He has been taking is isosorbide. He follows with Dr. Okeefe and was supposed to see him last week but had to cancel his appointment. During his episodes of chest pains he denies any SOB or increased WOB. No nausea or diaphoresis. He reports lately he has been forgetting simple things and does not feel himself. 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 MD complaint: chest pain Pertinent past history: coronary artery disease Onset (ago): week(s) (2) Timing of current episode: episodic Prior episodes: No Onset: during exertion Pain location: substernal Pain radiation: none Severity: moderate Quality: aching Relieving factors: rest Exacerbating factors: exertion Associated symptoms: palpitations Risk Factors Coronary artery disease risk factors: hyperlipidemia and hypertension Related Data Home Medications Medication Instructions Recorded Confirmed aspirin 81 mg tablet,delayed 81 mg PO DAILY 07/28/20 11/15/21 release (Adult Low Dose Aspirin) atorvastatin 80 mg tablet 80 mg PO BEDTIME 11/15/21 11/15/21 cyclobenzaprine 10 mg tablet 1 tab PO BID PRN Muscle Spasm 11/15/21 11/15/21 nitroglycerin 0.4 mg sublingual 0.4 mg sublingual Q5M PRN Chest 11/15/21 11/15/21 tablet Pain Previous Rx's Medication Instructions Recorded isosorbide mononitrate 30 mg 30 mg PO DAILY #90 tabs 12/28/21 tablet,extended release 24 hr metoprolol succinate 50 mg 50 mg PO DAILY #90 tabs 12/28/21 tablet,extended release 24 hr Allergies Allergy/AdvReac Type Severity Reaction Status Date / Time No Known Allergies Allergy Verified 11/14/21 17:46 Review of Systems Review of Systems: Constitutional: No Fever, No Chills ENT/Mouth: No sore throat, No Rhinorrhea, No Swallowing Difficulty Eyes: No Eye Pain, No Swelling, No Redness Cardiovascular: + Chest Pain, No SOB, No Orthopnea, No Edema, +Palpitations Respiratory: No Cough, No Sputum, No Wheezing, No dyspnea Gastrointestinal: No Nausea, No Vomiting, No Diarrhea, No abdominal Pain Genitourinary: No Dysuria, No Urinary Frequency, No Hematuria Musculoskeletal:+ joint pain, + Myalgias Skin: No Skin Lesions, No rash Neuro: No Weakness, No Numbness, No Dizziness, No Headache Psych: No Anxiety/Panic, No Depression Heme/Lymph: No Bruising, No Lymphadenopathy Endocrine: No Polyuria, No Polydipsia PMFSH Past Medical History Medical History CAD (coronary artery disease) Enlarged thoracic aorta HTN (hypertension) PVCs (premature ventricular contractions) Surgical History History of esophagogastroduodenoscopy (EGD) Hx of CABG Hx of cardiac cath Stented coronary artery Family History Family History Father CVD (cardiovascular disease) Mother CVD (cardiovascular disease) Social History Social History Alcohol intake: never Patient Tobacco Use Status: Never used Tobacco Use of substances other than those prescribed or required for medical reasons: No Advance Directives: Yes Advance Directives Information Provided: Yes Advance Directives on File: No Physical Exam Vital Signs: Vital Signs: Last Vital Signs Temp 98.8 F 01/30/22 08:11 Pulse 65 01/30/22 08:11 Resp 18 01/30/22 08:11 BP 129/62 01/30/22 08:11 Pulse Ox 98 01/30/22 08:11 O2 Del Method 01/30/22 08:11 BMI result Body Mass Index 25.2 Appearance: Alert. Oriented X3. No acute distress. Eyes: Pupils equal, round and reactive to light. ENT: Pharynx normal. Neck: Normal inspection. Neck supple. CVS: Normal heart rate and rhythm. Pulses normal. Respiratory: No respiratory distress. Breath sounds normal. Abdomen: Soft and nontender. +BS x4 Skin: Skin warm and dry. Normal skin color. Normal skin turgor. No rashes. Extremities: No lower extremity edema. Neuro: Oriented X 3. No motor deficit. No sensory deficit. Course Course Course Narrative: 76 yo male presenting to the ER with chest pains consistent with unstable angina. He has extensive cardiac history including CABG x4 10 years ago. Echo in June showing normal LV function with impaired LV relaxation with a right wall motion abnormality. Will d/w cardiology. EKG without STEMI on arrival and he is chest pain free at rest. He will require admission. Reevaluation(s) Reevaluation #1: troponin 33. Case d/w Dr. Olivas - recommending admission. will get back about heparin Reevaluation #2: Dr. Olivas recommending Plavix 300 mg now and 75 daily starting tomorrow, lovenox 1mg/kg q12 for now. ordered. will contact hospitalist for admission. Consultations Consultation #1: Cardiology - Dr. Olivas MDM - Chest Pain Differential Diagnosis Differential diagnosis: Likely fracture of rib, pneumothorax, stable angina, unstable angina pectoris, atypical chest pain, st elevation myocardial infarctio n, costochondritis, chest pain and biliary colic Medical Records Data Attestation: I reviewed the patient's medical records. Lab Data Attestation: I reviewed the patient's lab results. Result diagrams: 01/30/22 10:15 01/30/22 10:15 Labs: Lab Results 01/30/22 01/30/22 01/30/22 Range/Units 10:04 10:15 10:15 WBC 8.2 (4.8-10.8) X10*3/uL RBC 3.75 L (4.60-5.80) X10*6/uL Hgb 13.3 L (14.0-18.0) g/dl Hct 39.3 L (42.0-52.0) % MCV 104.8 H (80.0-98.0) fL MCH 35.5 H (27.0-33.0) pg MCHC 33.8 (31.0-36.0) g/dl RDW 13.0 (11.0-16.0) % Plt Count 261 (160-400) X10*3/uL MPV 9.9 (9.4-12.4) fL Immature Gran % (Auto) 0.2 (0.0-0.4) % Neut % (Auto) 63.8 (45-73) % Lymph % (Auto) 26.1 (20-40) % [place] % (Auto) 7.1 (2-11) % Eos % (Auto) 2.3 (0-4) % Baso % (Auto) 0.5 (0-2) % Lymph # (Auto) 2.1 (1.2-4.9) X10*3/uL [place] # (Auto) 0.6 (0.1-1.2) X10*3/uL Eos # (Auto) 0.2 (0.0-0.4) X10*3/uL Baso # (Auto) 0.0 (0.0-0.2) X10*3/uL Abs Immat Gran (auto) 0.02 (0.00-0.03) X10*3/uL Absolute Neuts (auto) 5.2 (2.0-8.3) x10*3/uL Absolute Nucleated RBC 0.000 (0.0-0.012) X10*3/uL Nucleated RBC % (auto) 0.0 (0.0-0.2) /100WBC PT (10.0-13.1) SEC INR (0.9-1.1) APTT (26.0-36.4) SEC Sodium 140 (135-145) mmol/L Potassium 4.1 (3.3-5.1) mmol/L Chloride 102 (96-108) mmol/L Carbon Dioxide 24 (22-29) mmol/L Anion Gap 18 (12-20) BUN 19 H (9-16) mg/dL Creatinine 1.03 (0.5-1.4) mg/dL Estim Creat Clear Calc 57.1 Estimated GFR > 60 Random Glucose 100 (60-115) mg/dL Calcium 9.9 (8.4-10.2) mg/dL Magnesium 2.0 (1.6-2.6) mg/dL Total Bilirubin 0.8 (0.0-1.0) mg/dL Direct Bilirubin 0.3 (0.0-0.5) mg/dL AST 22 (5-37) U/L ALT 24 (0-40) U/L Alkaline Phosphatase 74 (39-117) U/L Troponin I High Sens (<3.5-35.0) ng/L B-Natriuretic Peptide (<100) pg/mL Total Protein 7.5 (6.5-8.0) g/dL Albumin 4.7 (3.5-5.0) g/dL Urine Color Yellow Urine Appearance Clear Urine pH 6.0 (5.0-9.0) Ur Specific [place] 1.010 (1.005-1.025) Urine Protein Negative (Neg-Trace) mg/dL Urine Glucose (UA) Negative (Negative) mg/dL Urine Ketones Negative (Negative) mg/dL Urine Blood Negative (Negative) Urine Nitrite Negative (Negative) Ur Leukocyte Esterase Negative (Negative) COVID-19 ([facility]) (Negative) COVID-19 Clin Com 01/30/22 01/30/22 01/30/22 Range/Units 10:15 10:15 10:15 WBC (4.8-10.8) X10*3/uL RBC (4.60-5.80) X10*6/uL Hgb (14.0-18.0) g/dl Hct (42.0-52.0) % MCV (80.0-98.0) fL MCH (27.0-33.0) pg MCHC (31.0-36.0) g/dl RDW (11.0-16.0) % Plt Count (160-400) X10*3/uL MPV (9.4-12.4) fL Immature Gran % (Auto) (0.0-0.4) % Neut % (Auto) (45-73) % Lymph % (Auto) (20-40) % [place] % (Auto) (2-11) % Eos % (Auto) (0-4) % Baso % (Auto) (0-2) % Lymph # (Auto) (1.2-4.9) X10*3/uL [place] # (Auto) (0.1-1.2) X10*3/uL Eos # (Auto) (0.0-0.4) X10*3/uL Baso # (Auto) (0.0-0.2) X10*3/uL Abs Immat Gran (auto) (0.00-0.03) X10*3/uL Absolute Neuts (auto) (2.0-8.3) x10*3/uL Absolute Nucleated RBC (0.0-0.012) X10*3/uL Nucleated RBC % (auto) (0.0-0.2) /100WBC PT 10.3 (10.0-13.1) SEC INR 0.9 (0.9-1.1) APTT 27.8 (26.0-36.4) SEC Sodium (135-145) mmol/L Potassium (3.3-5.1) mmol/L Chloride (96-108) mmol/L Carbon Dioxide (22-29) mmol/L Anion Gap (12-20) BUN (9-16) mg/dL Creatinine (0.5-1.4) mg/dL Estim Creat Clear Calc Estimated GFR Random Glucose (60-115) mg/dL Calcium (8.4-10.2) mg/dL Magnesium (1.6-2.6) mg/dL Total Bilirubin (0.0-1.0) mg/dL Direct Bilirubin (0.0-0.5) mg/dL AST (5-37) U/L ALT (0-40) U/L Alkaline Phosphatase (39-117) U/L Troponin I High Sens 33.9 (<3.5-35.0) ng/L B-Natriuretic Peptide 157 H (<100) pg/mL Total Protein (6.5-8.0) g/dL Albumin (3.5-5.0) g/dL Urine Color Urine Appearance Urine pH (5.0-9.0) Ur Specific [place] (1.005-1.025) Urine Protein (Neg-Trace) mg/dL Urine Glucose (UA) (Negative) mg/dL Urine Ketones (Negative) mg/dL Urine Blood (Negative) Urine Nitrite (Negative) Ur Leukocyte Esterase (Negative) COVID-19 ([facility]) Negative (Negative) COVID-19 Clin Com See Note ECG Data ECG #1: Attestation: I personally reviewed and interpreted this ECG as follows: ECG interpretation date: 01/30/22 ECG interpretation time: 09:27 Prior ECG tracings: available for review Interpretation: sinus rhythm with 1st degree AV block, HR 62 bpm, DE interval prolonged 256 ms, t-wave inversions in leads III and aVF which are new, no ST segment elevations or depressions. Critical Care Time Critical Care Time Critical Care Time: Yes Total Critical Care Time: 35 Attestation: I have personally provided critical care time exclusive of time spent on separately billable procedures. Time includes review of lab data, radiology results, discussion with consultants, and monitoring for potential decompensation. Intervention performed as documented. Discharge Plan Discharge Clinical Impression: Angina pectoris, unstable Patient Disposition: Admitted As Inpatient
[2022-01-30] MEDS: Aspirin 325 MG TABLET PO (10:05)
[2022-01-30 10:16] LABS: Appearance Urine Clear; Color Urine Yellow; Glucose Urine UA Negative (Negative); Leukocyte Esterase Urine Negative (Negative); Nitrite Urine Negative (Negative); Urine Blood Negative (Negative); Urine Ketones Negative (Negative); Urine Protein Negative (Neg-Trace)
[2022-01-30 10:19] LABS: MANUAL DIFF FLAG NO
[2022-01-30 10:23] LABS: Basophils Percent Auto 0.5 % (0-2); Eosinophils Absolute Auto 0.2 X10*3/uL (0.0-0.4); Eosinophils Percent Auto 2.3 % (0-4); Hematocrit 39.3 % (42.0-52.0); Hemoglobin 13.3 g/dl (14.0-18.0); Imm Gran Abs Auto 0.02 X10*3/uL (0.00-0.03); Imm Gran Pct Auto 0.2 % (0.0-0.4); Lymphocytes Absolute Auto 2.1 X10*3/uL (1.2-4.9); Lymphocytes Percent Auto 26.1 % (20-40); Mean Corpuscular HGB Conc 33.8 g/dl (31.0-36.0); Mean Corpuscular Hemoglobin 35.5 pg (27.0-33.0); Mean Corpuscular Volume 104.8 fL (80.0-98.0); Mean Platelet Volume 9.9 fL (9.4-12.4); Monocytes Absolute Auto 0.6 X10*3/uL (0.1-1.2); Monocytes Percent Auto 7.1 % (2-11); Neutrophils Absolute Auto 5.2 x10*3/uL (2.0-8.3); Neutrophils Percent Auto 63.8 % (45-73); Platelet Count 261 X10*3/uL (160-400); Red Blood Count 3.75 X10*6/uL (4.60-5.80); White Blood Count 8.2 X10*3/uL (4.8-10.8)
[2022-01-30 10:28] LABS: INTERNATIONAL NORM RATIO 0.9 (0.9-1.1); Prothrombin Time 10.3 SEC (10.0-13.1)
[2022-01-30 10:31] LABS: Partial Thromboplastin Time 27.8 SEC (26.0-36.4)
[2022-01-30 10:35] LABS: COVID-19 Test Negative (Negative); IDNOW Serial# 16C4AD1C
[2022-01-30 10:38] LABS: Alanine Aminotransferase 24 U/L (0-40); Albumin Level 4.7 g/dL (3.5-5.0); Alkaline Phosphatase 74 U/L (39-117); Anion Gap 18 (12-20); Aspartate Amino Transferase 22 U/L (5-37); Bilirubin Direct 0.3 mg/dL (0.0-0.5); Bilirubin Total 0.8 mg/dL (0.0-1.0); Blood Urea Nitrogen 19 mg/dL (9-16); Calcium 9.9 mg/dL (8.4-10.2); Carbon Dioxide 24 mmol/L (22-29); Chloride 102 mmol/L (96-108); Creatinine Clr Calc Pharmacy 57.1; Estimated Glomerular Filt Rate > 60; Glucose Random 100 mg/dL (60-115); Potassium 4.1 mmol/L (3.3-5.1); Sodium 140 mmol/L (135-145); Total Protein 7.5 g/dL (6.5-8.0)
[2022-01-30 10:48] LABS: B Type Natriuretic Peptide 157 pg/mL (<100)
[2022-01-30 11:05] LABS: Troponin-I High Sensitivity 33.9 ng/L (<3.5-35.0)
--- NOTE | 2022-01-30 11:47 | PM.IMHP ---
History of Present Illness Date of Service: 01/30/22 Chief Complaint: chest pain 76M with past medical history of coronary disease status post CABG presented with chest pain. Patient reports for the last several weeks he has been having intermittent midsternal chest pain similar to his previous cardiac pain. Worse on exertion. Relieved by nitroglycerin. 07/09, nonradiating, midsternal. On day prior to presentation patient's pain was significantly worse and he was unable to participate in his regular activities. In ED, EKG showed some signs of inferior ischemia. High sensitivity Troponin unremarkable at 33.9 Review of Systems Review of Systems: Constitutional: Denies fever, denies Chills Eyes: denies blurry vision ENT: denies sore throat CVS: chest pain Respiratory: Denies dyspnea GI: no abdominal pain : denies dysuria MSK: denies neck pain Skin: denies rash Neuro: denies specific motor weakness Psych: denies suicidal ideation Endocrine: denies heat/cold intolerance Hematologic: denies easy bleeding Allergy: denies hives [facility] Medical History CAD (coronary artery disease) Enlarged thoracic aorta HTN (hypertension) PVCs (premature ventricular contractions) Family History Father CVD (cardiovascular disease) Mother CVD (cardiovascular disease) Surgical History History of esophagogastroduodenoscopy (EGD) Hx of CABG Hx of cardiac cath Stented coronary artery Social History Alcohol intake: never Patient Tobacco Use Status: Never used Tobacco Use of substances other than those prescribed or required for medical reasons: No Advance Directives: Yes Advance Directives Information Provided: Yes Advance Directives on File: No Meds Allergies Allergy/AdvReac Type Severity Reaction Status Date / Time No Known Allergies Allergy Verified 11/14/21 17:46 Active Medications: Current Medications Clopidogrel Bisulfate (Clopidogrel Bisulfate 75 Mg Tablet) 75 mg PO DAILY [facility] Enoxaparin Sodium (Enoxaparin Sodium 80 Mg/0.8 Ml Syringe) 80 mg 1 mg/kg (80 mg) SUBCUT Q12H [facility] Pharmacy Consult (Consult Rx Perform Med Rec) 1 each MISCELLANE ONCE PRN PRN Reason: Consult order Sodium Chloride (0.9 % Sodium Chloride Flush 3 Ml Syringe) 3 ml IVFLUSH QSHIFT [facility] Home Medications Medication Instructions Recorded Confirmed Last Taken Type aspirin 81 mg tablet,delayed 81 mg PO DAILY 07/28/20 11/15/21 11/14/21 09:00 History release (Adult Low Dose Aspirin) atorvastatin 80 mg tablet 80 mg PO BEDTIME 11/15/21 11/15/21 11/13/21 23:00 History cyclobenzaprine 10 mg tablet 1 tab PO BID PRN Muscle Spasm 11/15/21 11/15/21 11/14/21 09:00 History nitroglycerin 0.4 mg sublingual 0.4 mg sublingual Q5M PRN Chest 11/15/21 11/15/21 Unknown History tablet Pain Physical Exam Vital Signs and Narrative: Vital Signs: Last Vital Signs Temp 98.8 F 01/30/22 08:11 Pulse 65 01/30/22 08:11 Resp 18 01/30/22 08:11 BP 129/62 01/30/22 08:11 Pulse Ox 98 01/30/22 08:11 O2 Del Method 01/30/22 08:11 BMI result Body Mass Index 25.2 General: no acute distress HEENT: atraumatic Neck: normal to visual inspection CVS: S1, S2, RRR Resp: CTA bilateral Chest: non tender GI: soft, non tender, non distended : no CVA tenderness Skin: no rashes Extremities: no edema Neuro: Oriented X3, grossly intact Psych: cooperative Results Labs CBC and Chem 7: 01/30/22 10:15 01/30/22 10:15 Labs: Laboratory Results - last 24 hr 01/30/22 01/30/22 01/30/22 10:04 10:15 10:15 MCV 104.8 H MCH 35.5 H MCHC 33.8 RDW 13.0 Plt Count 261 MPV 9.9 Immature Gran % (Auto) 0.2 Neut % (Auto) 63.8 Lymph % (Auto) 26.1 [place] % (Auto) 7.1 Eos % (Auto) 2.3 Baso % (Auto) 0.5 Lymph # (Auto) 2.1 [place] # (Auto) 0.6 Eos # (Auto) 0.2 Baso # (Auto) 0.0 Abs Immat Gran (auto) 0.02 Absolute Neuts (auto) 5.2 Absolute Nucleated RBC 0.000 Nucleated RBC % (auto) 0.0 PT INR APTT Anion Gap 18 Estim Creat Clear Calc 57.1 Estimated GFR > 60 Random Glucose 100 Calcium 9.9 Magnesium 2.0 Total Bilirubin 0.8 Direct Bilirubin 0.3 AST 22 ALT 24 Alkaline Phosphatase 74 Troponin I High Sens B-Natriuretic Peptide Total Protein 7.5 Albumin 4.7 Urine Color Yellow Urine Appearance Clear Urine pH 6.0 Ur Specific [place] 1.010 Urine Protein Negative Urine Glucose (UA) Negative Urine Ketones Negative Urine Blood Negative Urine Nitrite Negative Ur Leukocyte Esterase Negative COVID-19 ([facility]) COVID-19 [facility] 01/30/22 01/30/22 01/30/22 10:15 10:15 10:15 MCV MCH MCHC RDW Plt Count MPV Immature Gran % (Auto) Neut % (Auto) Lymph % (Auto) [place] % (Auto) Eos % (Auto) Baso % (Auto) Lymph # (Auto) [place] # (Auto) Eos # (Auto) Baso # (Auto) Abs Immat Gran (auto) Absolute Neuts (auto) Absolute Nucleated RBC Nucleated RBC % (auto) PT 10.3 INR 0.9 APTT 27.8 Anion Gap Estim Creat Clear Calc Estimated GFR Random Glucose Calcium Magnesium Total Bilirubin Direct Bilirubin AST ALT Alkaline Phosphatase Troponin I High Sens 33.9 B-Natriuretic Peptide 157 H Total Protein Albumin Urine Color Urine Appearance Urine pH Ur Specific [place] Urine Protein Urine Glucose (UA) Urine Ketones Urine Blood Urine Nitrite Ur Leukocyte Esterase COVID-19 ([facility]INA) Negative COVID-19 Clin Com See Note Imaging Radiologist's Impressions: Impressions Chest X-Ray 01/30/22 09:43 IMPRESSION: No acute cardiopulmonary process. Assessment and Plan (1) Angina pectoris, unstable: Status: Acute Plan 76M pmh CAD presented with chest pain CAD with unstable angina DAPL, statin, therapeutic lovenox, follow up troponin, cardiology metoprolol macrocytosis with no anemia check b12, folate, tsh full code patient with unstable angina, high risk due to underlying severe CAD, advanced age, therefore, likely to require atleast 2 midnights in hospital Quality Stroke Does the patient have a stroke diagnosis?: No VTE Prior VTE?: No VTE Risk Level:: Medical - moderate - high VTE Device Contraindication: Treatment Not Indicated VTE Drug Contraindication: N/A - Med Ordered
[2022-01-30 12:18] VITALS: BP 151/75; PULSE 63; RESP 16; TEMP 36.8; O2SAT 98
[2022-01-30] MEDS: Enoxaparin Sodium 80 MG/0.8 ML SYRINGE SUBCUT (12:20)
[2022-01-30] MEDS: Clopidogrel Bisulfate 300 MG TABLET PO (12:20)
[2022-01-30 12:24] LABS: Thyroid Stimulating Hormone 0.85 uIU/mL (0.32-4.0)
--- NOTE | 2022-01-30 12:30 | PHA.MEDREC ---
Pharmacy Consult ? Medication Reconciliation Pharmacy has completed the medication reconciliation. Patient and their spouse (Claudine) verified med list. Pt claims to be on ibuprofen 400mg TID and Tylenol 650 mg TID with the ibuprofen. In addition, patient states they take Tylenol 1300mg 3 hours after the ibuprofen and Tylenol doses as needed.
[2022-01-30 12:40] LABS: Vitamin B12 211 pg/mL (200-900)
[2022-01-30 13:36] LABS: Troponin-I High Sensitivity 39.8 ng/L (<3.5-35.0)
--- NOTE | 2022-01-30 14:16 | PM.CNCAR ---
History of Present Illness History of Present Illness Date of Service: 01/30/22 Requesting physician: Henny Cerda Chief complaint: Chest Pain Unstable Angina Narrative: 76-year-old gentleman with history of bypass surgery and previous PCI was presenting with exertional chest discomfort progressive over the last 2-3 weeks. He is not very active at baseline but over the last 2 weeks he has started noticing chest tightness with minimal exertion which is worsening to the point that he is getting chest discomfort with taking few steps. EKG was done in the ER which showed inferior T-wave inversions. His biomarkers are 33, 39 and 40. He is giving symptoms of classic angina which she has been experiencing before but has worsened in the last couple of weeks. No bleeding issues. Has been taking aspirin as a medications regularly. FORMERLY [facility] Past Medical History Medical History CAD (coronary artery disease) Enlarged thoracic aorta HTN (hypertension) PVCs (premature ventricular contractions) Family History Family History Father CVD (cardiovascular disease) Mother CVD (cardiovascular disease) Surgical History Surgical History History of esophagogastroduodenoscopy (EGD) Hx of CABG Hx of cardiac cath Stented coronary artery Social History Social History Alcohol intake: never Patient Tobacco Use Status: Never used Tobacco Use of substances other than those prescribed or required for medical reasons: No Advance Directives: Yes Advance Directives Information Provided: Yes Advance Directives on File: No Meds Allergies Allergy/AdvReac Type Severity Reaction Status Date / Time No Known Allergies Allergy Verified 11/14/21 17:46 Active Medications: Current Medications Aspirin (Aspirin Enteric Coated 81 Mg Tablet.) 81 mg PO DAILY [facility] Atorvastatin Calcium (Atorvastatin Calcium 80 Mg Tablet) 80 mg PO BEDTIME [facility] Clopidogrel Bisulfate (Clopidogrel Bisulfate 75 Mg Tablet) 75 mg PO DAILY [facility] Enoxaparin Sodium (Enoxaparin Sodium 80 Mg/0.8 Ml Syringe) 80 mg 1 mg/kg (80 mg) SUBCUT Q12H [facility] Last Admin: 01/30/22 12:20 Dose: 80 mg Isosorbide Mononitrate (Isosorbide Mononitrate 30 Mg Tab.Er.24h) 30 mg PO DAILY [facility]; Protocol Metoprolol Succinate (Metoprolol Succinate Er 50 Mg Tab.Er.24h) 50 mg PO DAILY [facility]; Protocol Nitroglycerin (Nitroglycerin 0.4 Mg Tab.Subl) 0.4 mg SUBLINGUAL Q5M PRN PRN Reason: Chest Pain Pharmacy Consult (Consult Rx Perform Med Rec) 1 each MISCELLANE ONCE PRN PRN Reason: Consult order Sodium Chloride (0.9 % Sodium Chloride Flush 3 Ml Syringe) 3 ml IVFLUSH QSHIFT [facility] Home Medications Medication Instructions Recorded Confirmed Last Taken Type aspirin 81 mg tablet,delayed 81 mg PO DAILY 07/28/20 01/30/22 01/29/22 History release (Adult Low Dose Aspirin) atorvastatin 80 mg tablet 80 mg PO BEDTIME 11/15/21 01/30/22 01/29/22 History nitroglycerin 0.4 mg sublingual 0.4 mg sublingual Q5M PRN Chest 11/15/21 01/30/22 Unknown History tablet Pain acetaminophen 650 mg 1,300 mg PO Q12H PRN Pain 01/30/22 01/30/22 01/29/22 History tablet,extended release acetaminophen 650 mg 650 mg PO Q8H PRN Pain 01/30/22 01/30/22 01/29/22 History tablet,extended release cholecalciferol (vitamin D3) 25 25 mcg PO DAILY 01/30/22 01/30/22 01/29/22 History mcg (1,000 unit) tablet (Vitamin D3) ibuprofen 200 mg tablet 400 mg PO Q8H PRN Pain 01/30/22 01/30/22 01/29/22 History Physical Exam Vital Signs: Vital Signs: Last Vital Signs Temp 98.3 F 01/30/22 12:18 Pulse 63 01/30/22 12:18 Resp 16 01/30/22 12:18 BP 151/75 H 01/30/22 12:18 Pulse Ox 98 01/30/22 12:18 O2 Del Method 01/30/22 12:18 BMI result Body Mass Index 25.2 GENERAL APPEARANCE: in no acute distress, pleasant. NECK: no carotid bruit, no jugular venous distention. SKIN: no suspicious lesions, warm and dry. HEART: no murmurs, regular rate and rhythm. LUNGS: clear to auscultation bilaterally. ABDOMEN: soft, nontender. EXTREMITIES: no edema. PERIPHERAL PULSES: equal. NEUROLOGIC: No gross deficits, AAO X 3 Objective Labs and Meds Result diagrams: 01/30/22 10:15 01/30/22 10:15 Lab results: Laboratory Results - last 24 hr 01/30/22 01/30/22 01/30/22 10:04 10:15 10:15 WBC 8.2 RBC 3.75 L Hgb 13.3 L Hct 39.3 L MCV 104.8 H MCH 35.5 H MCHC 33.8 RDW 13.0 Plt Count 261 MPV 9.9 Immature Gran % (Auto) 0.2 Neut % (Auto) 63.8 Lymph % (Auto) 26.1 [place] % (Auto) 7.1 Eos % (Auto) 2.3 Baso % (Auto) 0.5 Lymph # (Auto) 2.1 [place] # (Auto) 0.6 Eos # (Auto) 0.2 Baso # (Auto) 0.0 Abs Immat Gran (auto) 0.02 Absolute Neuts (auto) 5.2 Absolute Nucleated RBC 0.000 Nucleated RBC % (auto) 0.0 PT INR APTT Sodium 140 Potassium 4.1 Chloride 102 Carbon Dioxide 24 Anion Gap 18 BUN 19 H Creatinine 1.03 Estim Creat Clear Calc 57.1 Estimated GFR > 60 Random Glucose 100 Calcium 9.9 Magnesium 2.0 Total Bilirubin 0.8 Direct Bilirubin 0.3 AST 22 ALT 24 Alkaline Phosphatase 74 Troponin I High Sens B-Natriuretic Peptide Total Protein 7.5 Albumin 4.7 Vitamin B12 Folate TSH 0.85 Urine Color Yellow Urine Appearance Clear Urine pH 6.0 Ur Specific [place] 1.010 Urine Protein Negative Urine Glucose (UA) Negative Urine Ketones Negative Urine Blood Negative Urine Nitrite Negative Ur Leukocyte Esterase Negative COVID-19 ([facility]) COVID-19 Clin Com 01/30/22 01/30/22 01/30/22 10:15 10:15 10:15 WBC RBC Hgb Hct MCV MCH MCHC RDW Plt Count MPV Immature Gran % (Auto) Neut % (Auto) Lymph % (Auto) [place] % (Auto) Eos % (Auto) Baso % (Auto) Lymph # (Auto) [place] # (Auto) Eos # (Auto) Baso # (Auto) Abs Immat Gran (auto) Absolute Neuts (auto) Absolute Nucleated RBC Nucleated RBC % (auto) PT 10.3 INR 0.9 APTT 27.8 Sodium Potassium Chloride Carbon Dioxide Anion Gap BUN Creatinine Estim Creat Clear Calc Estimated GFR Random Glucose Calcium Magnesium Total Bilirubin Direct Bilirubin AST ALT Alkaline Phosphatase Troponin I High Sens 33.9 B-Natriuretic Peptide 157 H Total Protein Albumin Vitamin B12 Folate TSH Urine Color Urine Appearance Urine pH Ur Specific [place] Urine Protein Urine Glucose (UA) Urine Ketones Urine Blood Urine Nitrite Ur Leukocyte Esterase COVID-19 ([facility]) Negative COVID-19 Clin Com See Note 01/30/22 01/30/22 10:15 13:10 WBC RBC Hgb Hct MCV MCH MCHC RDW Plt Count MPV Immature Gran % (Auto) Neut % (Auto) Lymph % (Auto) [place] % (Auto) Eos % (Auto) Baso % (Auto) Lymph # (Auto) [place] # (Auto) Eos # (Auto) Baso # (Auto) Abs Immat Gran (auto) Absolute Neuts (auto) Absolute Nucleated RBC Nucleated RBC % (auto) PT INR APTT Sodium Potassium Chloride Carbon Dioxide Anion Gap BUN Creatinine Estim Creat Clear Calc Estimated GFR Random Glucose Calcium Magnesium Total Bilirubin Direct Bilirubin AST ALT Alkaline Phosphatase Troponin I High Sens 39.8 H B-Natriuretic Peptide Total Protein Albumin Vitamin B12 211 Folate 14.0 TSH Urine Color Urine Appearance Urine pH Ur Specific [place] Urine Protein Urine Glucose (UA) Urine Ketones Urine Blood Urine Nitrite Ur Leukocyte Esterase COVID-19 ([facility]) COVID-19 Clin Com Imaging Radiologist's impression: Impressions Chest X-Ray 01/30/22 09:43 IMPRESSION: No acute cardiopulmonary process. Assessment and Plan (1) Angina pectoris, unstable: Status: Acute Plan Pleasant 76-year-old gentleman with known history of bypass surgery and previous PCI presenting for unstable angina. Blood pressure is mildly elevated. Adding amlodipine 2.5 mg once a day. He already is on aspirin. We have loaded him 300 mg of Plavix and starting a Plavix 75 mg once a day. For start him on Lovenox for acute coronary syndrome. He will need echocardiography on Tuesday with potential transfer for cardiac catheterization on Tuesday. I would change him to heparin drip at the time he was transferred to [facility]. Thank you for allowing me to participate in the care of your patient. Please feel free to contact me if you have any questions. Procedures Date of Service Date of Service: 01/30/22
--- NOTE | 2022-01-30 14:21 | PC.NURSE ---
pt with no chest pain but has chest pressure mid sternum only.
[2022-01-30 14:25] VITALS: BP 148/72; PULSE 62; RESP 16; O2SAT 95
[2022-01-30 15:05] LABS: Troponin-I High Sensitivity 40.4 ng/L (<3.5-35.0)
[2022-01-30 16:00] VITALS: BP 143/87; PULSE 74; RESP 20; TEMP 36.3; O2SAT 97
[2022-01-30] MEDS: 0.9 % Sodium Chloride Flush 3 ML SYRINGE IVFLUSH ×2 (17:44→20:25)
[2022-01-30] MEDS: amLODIPine Besylate 2.5 MG TABLET PO (17:44)
[2022-01-30 19:07] VITALS: BP 139/64; PULSE 72; RESP 18; TEMP 36.8; O2SAT 96
[2022-01-30] MEDS: Atorvastatin Calcium 80 MG TABLET PO (20:25)
[2022-01-30 23:17] VITALS: BP 153/71; PULSE 82; RESP 18; TEMP 36.9; O2SAT 98
[2022-01-31] MEDS: Enoxaparin Sodium 80 MG/0.8 ML SYRINGE SUBCUT ×3 (00:32→23:26)
[2022-01-31 03:30] VITALS: BP 130/58; PULSE 57; RESP 18; TEMP 36.4; O2SAT 96
[2022-01-31 06:53] LABS: Hematocrit 42.4 % (42.0-52.0); Hemoglobin 14.4 g/dl (14.0-18.0); Mean Corpuscular Hemoglobin 35.6 pg (27.0-33.0); Mean Platelet Volume 10.3 fL (9.4-12.4); Platelet Count 271 X10*3/uL (160-400); Red Blood Count 4.04 X10*6/uL (4.60-5.80); White Blood Count 10.1 X10*3/uL (4.8-10.8)
[2022-01-31 07:18] LABS: Anion Gap 20 (12-20); Blood Urea Nitrogen 21 mg/dL (9-16); Calcium 10.1 mg/dL (8.4-10.2); Carbon Dioxide 22 mmol/L (22-29); Chloride 101 mmol/L (96-108); Creatinine Clr Calc Pharmacy 58.9; Estimated Glomerular Filt Rate > 60; Glucose Fasting 92 mg/dL (60-99); Potassium 4.1 mmol/L (3.3-5.1); Sodium 139 mmol/L (135-145)
[2022-01-31 07:27] VITALS: BP 138/63; PULSE 69; RESP 16; TEMP 36.9; O2SAT 95
--- NOTE | 2022-01-31 08:44 | HO.PM.IMPN ---
Subjective Subjective Date of Service: 01/31/22 Interval History: cc: chest pain interval history: still with occasional chest discomfort Respiratory Respiratory: Reports no additional respiratory complaints Gastrointestinal Gastrointestinal: Reports no additional gastrointestinal complaints Physical Exam Vital Signs: Vital Signs: Last Vital Signs Temp 98.5 F 01/31/22 07:27 Pulse 69 01/31/22 07:27 Resp 16 01/31/22 07:27 BP 138/63 01/31/22 07:27 Pulse Ox 95 01/31/22 07:27 O2 Del Method 01/31/22 07:27 BMI result Body Mass Index 25.2 General: AO X 3, no acute distress Resp: CTA bilateral, no accessory muscles used CVS: S1,S2,RRR GI: soft, non tender, non distended Neuro: motor grossly intact, alert Psych: appropriate affect, appropriate insight Objective Data Active Medications Amlodipine Besylate (Amlodipine Besylate 2.5 Mg Tablet) 2.5 mg PO DAILY [facility]; Protocol Last Admin: 01/30/22 17:44 Dose: 2.5 mg Documented By: BRAULIO Aspirin (Aspirin Enteric Coated 81 Mg Tablet.Dr) 81 mg PO DAILY [facility] Atorvastatin Calcium (Atorvastatin Calcium 80 Mg Tablet) 80 mg PO BEDTIME [facility] Last Admin: 01/30/22 20:25 Dose: 80 mg Documented By: МАРИНА Clopidogrel Bisulfate (Clopidogrel Bisulfate 75 Mg Tablet) 75 mg PO DAILY [facility] Cyanocobalamin (Cyanocobalamin (Vitamin B-12) 1,000 Mcg Tablet) 1,000 mcg PO DAILY [facility] Enoxaparin Sodium (Enoxaparin Sodium 80 Mg/0.8 Ml Syringe) 80 mg 1 mg/kg (80 mg) SUBCUT Q12H [facility] Last Admin: 01/31/22 00:32 Dose: 80 mg Documented By: МАРИНА Isosorbide Mononitrate (Isosorbide Mononitrate 30 Mg Tab.Er.24h) 30 mg PO DAILY [facility]; Protocol Metoprolol Succinate (Metoprolol Succinate Er 50 Mg Tab.Er.24h) 50 mg PO DAILY [facility]; Protocol Nitroglycerin (Nitroglycerin 0.4 Mg Tab.Subl) 0.4 mg SUBLINGUAL Q5M PRN PRN Reason: Chest Pain Pharmacy Consult (Consult Rx Perform Med Rec) 1 each MISCELLANE ONCE PRN PRN Reason: Consult order Sodium Chloride (0.9 % Sodium Chloride Flush 3 Ml Syringe) 3 ml IVFLUSH QSHIFT [facility] Last Admin: 01/30/22 20:25 Dose: 3 ml Documented By: МАРИНА Labs CBC & Chem 7: 01/31/22 06:15 01/31/22 06:15 Labs: Laboratory Results - last 24 hr 01/30/22 01/30/22 01/30/22 10:04 10:15 10:15 MCV 104.8 H MCH 35.5 H MCHC 33.8 RDW 13.0 Plt Count 261 MPV 9.9 Immature Gran % (Auto) 0.2 Neut % (Auto) 63.8 Lymph % (Auto) 26.1 [place] % (Auto) 7.1 Eos % (Auto) 2.3 Baso % (Auto) 0.5 Lymph # (Auto) 2.1 [place] # (Auto) 0.6 Eos # (Auto) 0.2 Baso # (Auto) 0.0 Abs Immat Gran (auto) 0.02 Absolute Neuts (auto) 5.2 Absolute Nucleated RBC 0.000 Nucleated RBC % (auto) 0.0 PT INR APTT Anion Gap 18 Estim Creat Clear Calc 57.1 Estimated GFR > 60 Random Glucose 100 Fasting Glucose Calcium 9.9 Magnesium 2.0 Total Bilirubin 0.8 Direct Bilirubin 0.3 AST 22 ALT 24 Alkaline Phosphatase 74 Troponin I High Sens B-Natriuretic Peptide Total Protein 7.5 Albumin 4.7 Vitamin B12 Folate TSH 0.85 Urine Color Yellow Urine Appearance Clear Urine pH 6.0 Ur Specific [place] 1.010 Urine Protein Negative Urine Glucose (UA) Negative Urine Ketones Negative Urine Blood Negative Urine Nitrite Negative Ur Leukocyte Esterase Negative COVID-19 ([facility]) COVID-19 Clin Com 01/30/22 01/30/22 01/30/22 10:15 10:15 10:15 MCV MCH MCHC RDW Plt Count MPV Immature Gran % (Auto) Neut % (Auto) Lymph % (Auto) [place] % (Auto) Eos % (Auto) Baso % (Auto) Lymph # (Auto) [place] # (Auto) Eos # (Auto) Baso # (Auto) Abs Immat Gran (auto) Absolute Neuts (auto) Absolute Nucleated RBC Nucleated RBC % (auto) PT 10.3 INR 0.9 APTT 27.8 Anion Gap Estim Creat Clear Calc Estimated GFR Random Glucose Fasting Glucose Calcium Magnesium Total Bilirubin Direct Bilirubin AST ALT Alkaline Phosphatase Troponin I High Sens 33.9 B-Natriuretic Peptide 157 H Total Protein Albumin Vitamin B12 Folate TSH Urine Color Urine Appearance Urine pH Ur Specific [place] Urine Protein Urine Glucose (UA) Urine Ketones Urine Blood Urine Nitrite Ur Leukocyte Esterase COVID-19 ([facility]) Negative COVID-19 Clin Com See Note 01/30/22 01/30/22 01/30/22 10:15 13:10 14:38 MCV MCH MCHC RDW Plt Count MPV Immature Gran % (Auto) Neut % (Auto) Lymph % (Auto) [place] % (Auto) Eos % (Auto) Baso % (Auto) Lymph # (Auto) [place] # (Auto) Eos # (Auto) Baso # (Auto) Abs Immat Gran (auto) Absolute Neuts (auto) Absolute Nucleated RBC Nucleated RBC % (auto) PT INR APTT Anion Gap Estim Creat Clear Calc Estimated GFR Random Glucose Fasting Glucose Calcium Magnesium Total Bilirubin Direct Bilirubin AST ALT Alkaline Phosphatase Troponin I High Sens 39.8 H 40.4 H B-Natriuretic Peptide Total Protein Albumin Vitamin B12 211 Folate 14.0 TSH Urine Color Urine Appearance Urine pH Ur Specific [place] Urine Protein Urine Glucose (UA) Urine Ketones Urine Blood Urine Nitrite Ur Leukocyte Esterase COVID-19 ([facility]) COVID-19 Clin Com 01/31/22 01/31/22 06:15 06:15 MCV 105.0 H MCH 35.6 H MCHC 34.0 RDW 13.0 Plt Count 271 MPV 10.3 Immature Gran % (Auto) Neut % (Auto) Lymph % (Auto) [place] % (Auto) Eos % (Auto) Baso % (Auto) Lymph # (Auto) [place] # (Auto) Eos # (Auto) Baso # (Auto) Abs Immat Gran (auto) Absolute Neuts (auto) Absolute Nucleated RBC 0.000 Nucleated RBC % (auto) 0.0 PT INR APTT Anion Gap 20 Estim Creat Clear Calc 58.9 Estimated GFR > 60 Random Glucose Fasting Glucose 92 Calcium 10.1 Magnesium Total Bilirubin Direct Bilirubin AST ALT Alkaline Phosphatase Troponin I High Sens B-Natriuretic Peptide Total Protein Albumin Vitamin B12 Folate TSH Urine Color Urine Appearance Urine pH Ur Specific [place] Urine Protein Urine Glucose (UA) Urine Ketones Urine Blood Urine Nitrite Ur Leukocyte Esterase COVID-19 ([facility]) COVID-19 Clin Com Assessment and Plan (1) Angina pectoris, unstable: Status: Acute Plan 76M pmh CAD presented with chest pain CAD with unstable angina continue DAPL, statin, metoprolol, imdur, therapeutic lovenox (change to heparin prior to transfer) echo to be done 02/01/22 and then plan for transfer to [facility] [place] [place] for cardiac cath macrocytosis with no anemia possibly due to b12 deficiency - 212 will start oral supplement full code reason for continued hospitalization: unstable angina needing anticoagulation, close monitoring and plan for transfer for cardiac cath Quality Stroke Does the patient have a stroke diagnosis?: No VTE Prior VTE?: No VTE Risk Level:: Medical - moderate - high VTE Device Contraindication: Treatment Not Indicated VTE Drug Contraindication: N/A - Med Ordered
[2022-01-31] MEDS: Metoprolol Succinate ER 50 MG TAB.ER.24H PO (09:47)
[2022-01-31] MEDS: Aspirin Enteric Coated 81 MG TABLET.DR PO (09:47)
[2022-01-31] MEDS: Cyanocobalamin (Vitamin B-12) 1,000 MCG TABLET 1000 MCG PO (09:47)
[2022-01-31] MEDS: Isosorbide Mononitrate 30 MG TAB.ER.24H PO (09:47)
[2022-01-31] MEDS: amLODIPine Besylate 2.5 MG TABLET PO (09:47)
[2022-01-31] MEDS: Clopidogrel Bisulfate 75 MG TABLET PO (09:48)
[2022-01-31] MEDS: 0.9 % Sodium Chloride Flush 3 ML SYRINGE IVFLUSH ×3 (09:51→21:52)
--- NOTE | 2022-01-31 10:10 | MHC.HEMONC ---
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
[2022-01-31 11:31] VITALS: BP 121/66; PULSE 70; RESP 16; TEMP 36.8; O2SAT 94
--- NOTE | 2022-01-31 12:17 | PM.PNCARD ---
Subjective Subjective Date of Service: 01/31/22 Interval history: Seen examined at bedside. Overall clinically stable. Physical Exam Vital Signs: Last Vital Signs Temp 98.2 F 01/31/22 11:31 Pulse 70 01/31/22 11:31 Resp 16 01/31/22 11:31 BP 121/66 01/31/22 11:31 Pulse Ox 94 01/31/22 11:31 O2 Del Method 01/31/22 11:31 BMI result Body Mass Index 25.2 GENERAL APPEARANCE: in no acute distress, pleasant. NECK: no carotid bruit, no jugular venous distention. SKIN: no suspicious lesions, warm and dry. HEART: no murmurs, regular rate and rhythm. LUNGS: clear to auscultation bilaterally. ABDOMEN: soft, nontender. EXTREMITIES: no edema. PERIPHERAL PULSES: equal. NEUROLOGIC: No gross deficits, AAO X 3 Objective Labs and Meds Result diagrams: 01/31/22 06:15 01/31/22 06:15 Lab results: Laboratory Results - last 24 hr 01/30/22 01/30/22 01/30/22 10:15 10:15 13:10 WBC RBC Hgb Hct MCV MCH MCHC RDW Plt Count MPV Absolute Nucleated RBC Nucleated RBC % (auto) Sodium Potassium Chloride Carbon Dioxide Anion Gap BUN Creatinine Estim Creat Clear Calc Estimated GFR Fasting Glucose Calcium Troponin I High Sens 39.8 H Vitamin B12 211 Folate 14.0 TSH 0.85 01/30/22 01/31/22 01/31/22 14:38 06:15 06:15 WBC 10.1 RBC 4.04 L Hgb 14.4 Hct 42.4 MCV 105.0 H MCH 35.6 H MCHC 34.0 RDW 13.0 Plt Count 271 MPV 10.3 Absolute Nucleated RBC 0.000 Nucleated RBC % (auto) 0.0 Sodium 139 Potassium 4.1 Chloride 101 Carbon Dioxide 22 Anion Gap 20 BUN 21 H Creatinine 1.00 Estim Creat Clear Calc 58.9 Estimated GFR > 60 Fasting Glucose 92 Calcium 10.1 Troponin I High Sens 40.4 H Vitamin B12 Folate TSH Progress Note: A&P Assessment and plan (1) Angina pectoris, unstable: Status: Acute Plan 76-year-old gentleman previous bypass surgery and PCI presenting for unstable angina. He was loaded with Plavix and is currently on aspirin and Plavix. He is on Lovenox. Plan is to do echocardiography tomorrow and then transferred for potential cardiac catheterization on Tuesday. Continue same medications for now. Blood pressure control is better with addition of amlodipine 2.5 mg once a day. Thank you for allowing me to participate in the care of your patient. Please feel free to contact me if you have any questions. Time Spent With Patient Time: Total time spent is greater than 50% in coordination of care (as documented) at patient's floor/unit and/or counseling patient: Progress Note: Quality Stroke Does the patient have a stroke diagnosis?: No Procedures Date of Service Date of Service: 01/31/22
--- NOTE | 2022-01-31 14:03 | MHC.CM.PN ---
Lives at home w/. Still drives. Previously on service w/[employer], but was D/C'd from their service prior to hospital admission. Owns stair lift, walker, cane and 2 rollators. requesting PT eval prior to D/C. Plan is home w/ via . CM to follow.
[2022-01-31] MEDS: Acetaminophen 325 MG TABLET 650 MG PO ×2 (14:35→21:51)
[2022-01-31 15:05] VITALS: BP 115/59; PULSE 80; RESP 18; TEMP 36.6; O2SAT 99
[2022-01-31 19:12] VITALS: BP 111/58; PULSE 73; RESP 18; TEMP 36.5; O2SAT 96
[2022-01-31] MEDS: Atorvastatin Calcium 80 MG TABLET PO (21:51)
[2022-01-31 23:14] VITALS: BP 121/57; PULSE 64; RESP 18; TEMP 36.7; O2SAT 97
[2022-02-01 03:23] VITALS: BP 132/70; PULSE 61; RESP 18; TEMP 36.7; O2SAT 96
[2022-02-01 06:47] LABS: Hematocrit 40.5 % (42.0-52.0); Hemoglobin 13.7 g/dl (14.0-18.0); Mean Corpuscular HGB Conc 33.8 g/dl (31.0-36.0); Mean Corpuscular Hemoglobin 35.3 pg (27.0-33.0); Mean Corpuscular Volume 104.4 fL (80.0-98.0); Platelet Count 269 X10*3/uL (160-400); Red Blood Count 3.88 X10*6/uL (4.60-5.80); White Blood Count 9.1 X10*3/uL (4.8-10.8)
[2022-02-01 07:16] LABS: Anion Gap 18 (12-20); Blood Urea Nitrogen 22 mg/dL (9-16); Carbon Dioxide 21 mmol/L (22-29); Chloride 103 mmol/L (96-108); Estimated Glomerular Filt Rate > 60; Glucose Fasting 106 mg/dL (60-99); Sodium 138 mmol/L (135-145)
[2022-02-01 07:26] VITALS: BP 131/67; PULSE 63; RESP 18; TEMP 36.1; O2SAT 95
--- NOTE | 2022-02-01 09:31 | P.DS_ITS ---
DS: Providers Provider Date of Service: 02/01/22 Date of admission: 01/30/22 11:43 Primary care physician: Jaya Lee MD Consults: 01/30/22 11:13 Consult to Cardiology Stat Consulting Provider: Murphy Olivas Reason for consultation: unstable angina Has provider been notified: Yes DS: Diagnosis Discharge Diagnosis (1) Angina pectoris, unstable: Status: Acute DS: Summary Hospital Course Hospital Course: from initial hpi: 76M with past medical history of coronary disease status post CABG presented with chest pain.? Patient reports for the last several weeks he has been having intermittent midsternal chest pain similar to his previous cardiac pain.? Worse on exertion.? Relieved by nitroglycerin.? 07/09, nonradiating, midsternal.? On day prior to presentation patient's pain was significantly worse and he was unable to participate in his regular activities.? In ED, EKG showed some signs of inferior ischemia.? High sensitivity Troponin unremarkable at 33.9 hospital course: Patient was admitted for chest pain due to coronary disease with unstable angina. He was loaded with Plavix and continue on 75 mg daily, continue his home a baby aspirin, continue on high-dose statin, metoprolol, Imdur. He was placed on therapeutic Lovenox. He had an echocardiogram and will be transferred to [facility] for catheterization. Patient also noted to have microcytosis without anemia, his B12 was on the lower side at 212, he will be started on supplement. Patient also noted to be hypertensive, he was started on amlodipine 2.5 mg daily. Time Spent with Patient Time attestation: Total time spent providing and/or coordinating discharge services: Discharge coordination time: Greater than 30 minutes Quality: Safe Use of Opioids Does Pt have an Active Cancer Diagnosis on the Problem List?: No Quality: Stroke Does the patient have a stroke diagnosis?: No Physical Exam Vital Signs: Vital Signs: Last Vital Signs Temp 97.0 F 02/01/22 07:26 Pulse 63 02/01/22 07:26 Resp 18 02/01/22 07:26 BP 131/67 02/01/22 07:26 Pulse Ox 95 02/01/22 07:26 O2 Del Method 02/01/22 07:26 BMI result Body Mass Index 25.2 GENERAL APPEARANCE: in no acute distress, pleasant. NECK: no carotid bruit, no jugular venous distention. SKIN: no suspicious lesions, warm and dry. HEART: no murmurs, regular rate and rhythm. LUNGS: clear to auscultation bilaterally. ABDOMEN: soft, nontender. EXTREMITIES: no edema. PERIPHERAL PULSES: equal. NEUROLOGIC: No gross deficits, AAO X 3 DS: Data Data Completed and Pending Labs on day of discharge: Laboratory Results - last 24 hr 02/01/22 02/01/22 06:02 06:02 WBC 9.1 RBC 3.88 L Hgb 13.7 L Hct 40.5 L MCV 104.4 H MCH 35.3 H MCHC 33.8 RDW 13.0 Plt Count 269 MPV 10.0 Absolute Nucleated RBC 0.000 Nucleated RBC % (auto) 0.0 Sodium 138 Potassium 4.0 Chloride 103 Carbon Dioxide 21 L Anion Gap 18 BUN 22 H Creatinine 1.05 Estim Creat Clear Calc 56.0 Estimated GFR > 60 Fasting Glucose 106 H Calcium 10.0 Discharge Plan Discharge Anticipated Discharge Date/Time: 02/01/22 11:32 Patient Disposition: [facility] Discharge Diagnosis: unstable angina Referrals: Jaya Lee MD [Primary Care Provider] - 1 Week Discharge Medications: New cyanocobalamin (vitamin B-12) [Vitamin B-12] 1,000 mcg Tablet 1,000 mcg PO DAILY Qty: 0 0RF amlodipine 2.5 mg Tablet 2.5 mg PO DAILY Qty: 0 0RF Protocol: Hold for SBP< HOLD for SBP < : 90 clopidogrel 75 mg Tablet 75 mg PO DAILY Qty: 0 0RF heparin(porcine) in 0.45% NaCl 25,000 unit/250 mL Parenteral Solution 25,000 unit continuous IV infusion .Q0M Qty: 0 0RF Continued isosorbide mononitrate 30 mg tablet extended release 24 hr 30 mg PO DAILY Qty: 90 3RF metoprolol succinate 50 mg tablet extended release 24 hr 50 mg PO DAILY Qty: 90 3RF nitroglycerin 0.4 mg Tablet, Sublingual 0.4 mg SUBLINGUAL Q5M PRN (Reason: Chest Pain) Rx Instructions: do not exceed 3 doses per episode atorvastatin 80 mg tablet 80 mg PO BEDTIME acetaminophen 650 mg Tablet Extended Release 1,300 mg PO Q12H PRN (Reason: Pain) acetaminophen 650 mg Tablet Extended Release 650 mg PO Q8H PRN (Reason: Pain) ibuprofen 200 mg Tablet 400 mg PO Q8H PRN (Reason: Pain) cholecalciferol (vitamin D3) [Vitamin D3] 25 mcg (1,000 unit) Tablet 25 mcg PO DAILY aspirin [Adult Low Dose Aspirin] 81 mg tablet,delayed release (DR/EC) 81 mg PO DAILY Diet: Advance to usual diet Activity on Discharge: As tolerated Stand Alone Forms: Patient Portal Discharge page Care Plan Goals: manage cad Health Concerns: cad, b12 defeciency, htn Plan of Treatment: trasnfer to [facility] [place] for cath, started on b12 supplement, started on amlodipine 2.5mg daily Assessment: see above
[2022-02-01] MEDS: Aspirin Enteric Coated 81 MG TABLET.DR PO (09:40)
[2022-02-01] MEDS: 0.9 % Sodium Chloride Flush 3 ML SYRINGE IVFLUSH (09:40)
[2022-02-01] MEDS: Isosorbide Mononitrate 30 MG TAB.ER.24H PO (09:41)
[2022-02-01] MEDS: amLODIPine Besylate 2.5 MG TABLET PO (09:41)
[2022-02-01] MEDS: Cyanocobalamin (Vitamin B-12) 1,000 MCG TABLET 1000 MCG PO (09:41)
[2022-02-01] MEDS: Clopidogrel Bisulfate 75 MG TABLET PO (09:41)
[2022-02-01] MEDS: Metoprolol Succinate ER 50 MG TAB.ER.24H PO (09:41)
[2022-02-01 11:11] VITALS: BP 112/65; PULSE 68; RESP 18; TEMP 36.6; O2SAT 95
--- NOTE | 2022-02-01 11:41 | P.PNCA_ITS ---
Subjective Subjective Date of Service: 02/01/22 Principal diagnosis: Unstable angina Interval history: Robert is having no chest discomfort this morning. He had overnight nonsustained ventricular tachycardia 9 beats. Denies any palpitations or lightheadedness. Currently on Lovenox. Plan for transfer to [facility] for cardiac catheterization Review of Systems Review of Systems Yes all other systems are reviewed and are negative Physical Exam Vital Signs: Last Vital Signs Temp 97.9 F 02/01/22 11:11 Pulse 68 02/01/22 11:11 Resp 18 02/01/22 11:11 BP 112/65 02/01/22 11:11 Pulse Ox 95 02/01/22 11:11 O2 Del Method 02/01/22 11:11 BMI result Body Mass Index 25.2 Const General: comfortable, no acute distress, alert and awake Nutritional Appearance: average body habitus Orientation/consciousness: patient oriented x3 Neck Neck: Yes trachea midline, Yes supple and Yes no JVD Resp Effort & Inspection: normal respiratory effort Auscultation: clear to auscultation bilaterally Cardio Jugular venous distension: no JVD Palpation: normal PMI Rate: regular rate Rhythm: regular rhythm Heart sounds: S1 normal heart sound present, S2 normal heart sound present, no click, no gallops and no murmurs GI Auscultation: normal bowel sounds Neuro General: patient oriented x3 and no focal motor deficits Objective Labs and Meds Result diagrams: 02/01/22 06:02 02/01/22 06:02 Lab results: Laboratory Results - last 24 hr 02/01/22 02/01/22 06:02 06:02 WBC 9.1 RBC 3.88 L Hgb 13.7 L Hct 40.5 L MCV 104.4 H MCH 35.3 H MCHC 33.8 RDW 13.0 Plt Count 269 MPV 10.0 Absolute Nucleated RBC 0.000 Nucleated RBC % (auto) 0.0 Sodium 138 Potassium 4.0 Chloride 103 Carbon Dioxide 21 L Anion Gap 18 BUN 22 H Creatinine 1.05 Estim Creat Clear Calc 56.0 Estimated GFR > 60 Fasting Glucose 106 H Calcium 10.0 Progress Note: A&P Assessment and plan (1) Angina pectoris, unstable: Status: Acute Assessment and Plan: Unstable angina in this elderly gentleman with prior coronary artery bypass grafting with failed graft as well as stenting. High likelihood of recurrent coronary atherosclerosis and/or graft closure of stent restenoses. Currently symptom free. Continue aggressive medical therapy. Switch to IV heparin. Patient being transferred to [facility] for cardiac catheterization to evaluate graft as well as coronary anatomy and possible percutaneous intervention. Continue dual antiplatelet therapy. Continue high-intensity statin therapy. Blood pressure is optimized. Continue dual antianginal therapy. Need for cardiac catheterization including risk, benefits, alternatives were discussed with him. He understands and agrees. Will follow up as outpatient Time Spent With Patient Time: Total time spent is greater than 50% in coordination of care (as documented) at patient's floor/unit and/or counseling patient: Progress Note: Quality Stroke Does the patient have a stroke diagnosis?: No Procedures Date of Service Date of Service: 02/01/22
[2022-02-01 12:03] LABS: Hematocrit 38.8 % (42.0-52.0); Hemoglobin 13.1 g/dl (14.0-18.0); Mean Corpuscular HGB Conc 33.8 g/dl (31.0-36.0); Mean Corpuscular Hemoglobin 35.3 pg (27.0-33.0); Mean Corpuscular Volume 104.6 fL (80.0-98.0); Mean Platelet Volume 9.7 fL (9.4-12.4); Platelet Count 248 X10*3/uL (160-400); Red Blood Count 3.71 X10*6/uL (4.60-5.80); White Blood Count 8.1 X10*3/uL (4.8-10.8)
[2022-02-01 12:09] LABS: Prothrombin Time 10.9 SEC (10.0-13.1)
[2022-02-01 12:12] LABS: PTT Heparin Drip 34.8 SEC (53-77.9)
[2022-02-01 12:45] VITALS: BMI 24.5
--- NOTE | 2022-02-01 15:19 | MHC.CM.PN ---
per medical rounds pt will not be ready for dc today dc plan remanis home with vna
[2022-02-01] MEDS: Heparin Sodium,Porcine/1/2NS 25,000 UNIT/250 ML IV.SOLN 10.54 UNIT IVCONT (15:51)
[2022-02-01 16:29] LABS: PTT Heparin Drip 33.4 SEC (53-77.9)
== END 2022-02-01 18:00 | disposition short-term general hospital (02) | DRG 303 ==
LOC: HO.ED 11:14 → HO.EDOVER 11:48 → HO.IMC 15:14
PROVIDERS: Physician Assistant; Admitting Provider Internal Medicine; Emergency Provider Emergency Medicine; PCP Internal Medicine; Visit Provider Internal Medicine
DX: I25.110 Atherosclerotic heart disease of native coronary artery with unstable angina pectoris (principal); I47.1 Supraventricular tachycardia; I10 Essential (primary) hypertension; D75.89 Other specified diseases of blood and blood-forming organs; Z20.822 Contact with and (suspected) exposure to COVID-19; Z95.1 Presence of aortocoronary bypass graft; Z79.82 Long term (current) use of aspirin; Z79.02 Long term (current) use of antithrombotics/antiplatelets; Z79.899 Other long term (current) drug therapy
CPT/HCPCS: 36415; 71045; 80048; 80076; 81003; 82607; 82746; 83735; 83880; 84443; 84484; 85025; 85027; 85610; 85730; 87635; 93005; 96372; 99285; J1650

== ENCOUNTER → 2022-02-09 11:24 | Outpatient (BNVA) | payer MEDICARE, SELFPAY | PROVIDERS: PCP Internal Medicine; Visit Provider Internal Medicine Cardiovascular Disease | DX: I22.2 Subsequent non-ST elevation (NSTEMI) myocardial infarction (principal); I77.89 Other specified disorders of arteries and arterioles; I49.3 Ventricular premature depolarization; Z95.2 Presence of prosthetic heart valve | CPT/HCPCS: 99212 ==

== ENCOUNTER → 2022-03-31 13:28 | Outpatient (BNVA) | payer MEDICARE, SELFPAY | PROVIDERS: PCP Internal Medicine; Referring Provider Internal Medicine; Visit Provider Nurse Practitioner Family | DX: I25.110 Atherosclerotic heart disease of native coronary artery with unstable angina pectoris (principal); I21.4 Non-ST elevation (NSTEMI) myocardial infarction; I10 Essential (primary) hypertension; Z95.1 Presence of aortocoronary bypass graft; Z95.5 Presence of coronary angioplasty implant and graft; Z98.890 Other specified postprocedural states | CPT/HCPCS: 99212 ==

== ENCOUNTER 2023-01-26 08:41 | Outpatient (REF) | payer MEDICARE, SELFPAY ==
[2023-01-26 11:07] LABS: MANUAL DIFF FLAG NO
[2023-01-26 11:35] LABS: Basophils Percent Auto 0.3 % (0-2); Eosinophils Absolute Auto 0.3 X10*3/uL (0.0-0.4); Eosinophils Percent Auto 3.3 % (0-4); Hematocrit 40.9 % (42.0-52.0); Hemoglobin 13.5 g/dl (14.0-18.0); Imm Gran Abs Auto 0.02 X10*3/uL (0.00-0.03); Imm Gran Pct Auto 0.2 % (0.0-0.4); Lymphocytes Percent Auto 20.8 % (20-40); Mean Corpuscular Volume 109.1 fL (80.0-98.0); Mean Platelet Volume 10.6 fL (9.4-12.4); Monocytes Absolute Auto 0.7 X10*3/uL (0.1-1.2); Monocytes Percent Auto 6.9 % (2-11); Neutrophils Absolute Auto 6.7 x10*3/uL (2.0-8.3); Neutrophils Percent Auto 68.5 % (45-73); Platelet Count 222 X10*3/uL (160-400); Red Blood Count 3.75 X10*6/uL (4.60-5.80); Red Cell Distribution Width 12.2 % (11.0-16.0); White Blood Count 9.7 X10*3/uL (4.8-10.8)
[2023-01-26 12:09] LABS: Prostate Specific Antigen Scr 2.55 ng/mL (<0.05-4.0)
[2023-01-26 12:22] LABS: Alanine Aminotransferase 19 U/L (0-40); Albumin Level 4.4 g/dL (3.5-5.0); Alkaline Phosphatase 109 U/L (39-117); Anion Gap 11 (12-20); Aspartate Amino Transferase 23 U/L (5-37); Bilirubin Total 0.5 mg/dL (0.0-1.0); Blood Urea Nitrogen 22 mg/dL (9-16); Calcium 9.4 mg/dL (8.4-10.2); Carbon Dioxide 27 mmol/L (22-29); Chloride 105 mmol/L (96-108); Cholesterol 110 mg/dL (<200); Estimated Glomerular Filt Rate > 60; Glucose Fasting 94 mg/dL (60-99); HDL Cholesterol 53 mg/dL (>40); LDL Cholesterol Calculated 49 mg/dL (<100); Sodium 139 mmol/L (135-145); Total Protein 7.3 g/dL (6.5-8.0); Triglycerides 43 mg/dL (<150)
== END 2023-01-26 08:42 | disposition home or self-care (01) ==
LOC: HO.HMGCLDS 08:41
PROVIDERS: PCP Internal Medicine; Visit Provider Internal Medicine
DX: I25.10 Atherosclerotic heart disease of native coronary artery without angina pectoris (principal); E78.00 Pure hypercholesterolemia, unspecified; I10 Essential (primary) hypertension; K21.9 Gastro-esophageal reflux disease without esophagitis; Z12.5 Encounter for screening for malignant neoplasm of prostate
CPT/HCPCS: 36415; 80053; 80061; 84153; 85025

== ENCOUNTER 2023-02-02 10:26 | Outpatient (AMB) | payer MEDICARE, SELFPAY ==
[2023-02-02 10:40] VITALS: BP 120/70; PULSE 59; BMI 23.1
--- NOTE | 2023-02-02 10:40 | A.OFFVIS_ITS ---
Intake Vital Signs 02/02/23 10:40 Height 5 ft 8 in Weight 152 lb 1.903 oz BMI 23.1 BP 120/70 Blood Pressure Location Lt brachial Position Sitting Pulse 59 Intake Visit Reasons: r/s 3 month follow up Intake Note: 3 month follow-up with ekg feeling good Advertising Director Required: No News Content Specialist: News Content Specialist Present Accompanied by: Spouse Allergies No Known Allergies Allergy (Verified 03/31/22 13:52) Medication List - Last Reconciled 02/02/23 by Jason Okeefe MD acetaminophen ER 1,300 mg PO Q12H PRN aspirin (Adult Low Dose Aspirin) 81 mg PO DAILY atorvastatin 80 mg PO DAILY cholecalciferol (vitamin D3) (Vitamin D3) 25 mcg PO DAILY clopidogrel 75 mg PO DAILY cyanocobalamin (vitamin B-12) (Vitamin B-12) 1,000 mcg PO DAILY famotidine (Pepcid) 20 mg PO BID isosorbide mononitrate ER 30 mg PO DAILY metoprolol succinate ER 50 mg PO DAILY nitroglycerin 0.4 mg sublingual Q5M PRN HPI HPI Comments History of Present Illness Details Robert comes for follow-up. He denies any cardiac symptoms at current point time. He says he feels very well overall. Takes all his medications. He has a year since his left main to LAD stenting with drug-eluting stent for acute coronary syndrome. Takes all his medications. Denies any exertional chest pain, shortness of breath. No orthopnea, PND, leg edema. No prolonged palpitation irregular heartbeat, lightheadedness, syncope. [facility] Medical History Angina pectoris, unstable Enlarged thoracic aorta PVCs (premature ventricular contractions) HTN (hypertension) CAD (coronary artery disease) Surgical History (Updated 02/02/23 @ 11:09 by Jason Okeefe MD) Stented coronary artery History of esophagogastroduodenoscopy (EGD) Hx of CABG Hx of cardiac cath Family History Father CVD (cardiovascular disease) Mother CVD (cardiovascular disease) Social History Household Members: Spouse Housing: House Do you presently have visiting nurse or other home services: No Alcohol intake: never Patient Tobacco Use Status: Never used Tobacco service: No Current occupational status: retired and disabled Review of Systems Const Denies chills, Denies fatigue, Denies fever(s), Denies frequent falls, Denies weakness, Denies weight gain and Denies weight loss ENT Denies dizziness Card Denies chest pain, Denies leg edema, Denies lightheadedness, Denies palpitations, Denies dyspnea, Denies dyspnea on exertion, Denies orthopnea and Denies other (loss of consciousness) Resp Denies cough, Denies dyspnea and Denies dyspnea on exertion GI Denies hematochezia and Denies change in stool character Musc Denies abnormal gait, Denies muscle weakness, Denies numbness, Denies radiating pain into limb and Denies tingling Neuro Denies abnormal gait, Denies dizziness, Denies frequent falls, Denies numbness, Denies tingling and Denies weakness Endo Denies fatigue and Denies palpitations Physical Exam Vital Signs: Last Vital Signs Pulse 59 02/02/23 10:40 BP 120/70 02/02/23 10:40 BMI result Body Mass Index 23.1 Const Other: ambulating with walker General: cooperative, healthy appearing, comfortable and no acute distress Nutritional Appearance: average body habitus and other (Frail appearing) Neck Neck: Yes normal visual inspection Resp Effort & Inspection: normal respiratory effort Auscultation: clear to auscultation bilaterally, no crackles, no rales, no rhonchi and no wheezes Cardio Jugular venous distension: no JVD Rate: regular rate Rhythm: regular rhythm Heart sounds: S1 normal heart sound present, S2 normal heart sound present, no gallops, no murmurs and no rubs Peripheral pulses: Peripheral pulses 2+ throughout Extrem General: Yes normal to inspection, No no pedal edema and No calf tenderness Psych Appearance: grossly normal Mental Status: mental status grossly normal Speech and movement: Normal speech and movement present Office Procedures EKG Details: EKG shows sinus bradycardia with first-degree AV block with incomplete right bundle-branch block with no acute ST T wave changes [id number], Complete Assessment & Plan Assessment & Plan (1) CAD (coronary artery disease): Code(s): I25.10 - Atherosclerotic heart disease of [place] coronary artery without angina pectoris Plan: CAD with complex prior coronary artery disease including prior coronary artery bypass grafting with atretic FERNANDEZ requiring LAD stenting. Subsequently has multiple stenting including to the saphenous graft. Most recently undergoing stenting from left main to the LAD for acute coronary syndrome. Since then he has been doing well. He had been a year since his stenting and is going therapy. Plavix can be discontinued. Continue lifelong aspirin therapy. Continue aggressive risk factor modification with aggressive control blood pressure. This is currently well optimized. Target goal LDL closer to 60 mg/dL. Encouraged to continue to participate in physical activity as tolerated. Advise regular lipid panel check to evaluate for efficacy of medical therapy. (2) Enlarged thoracic aorta: Code(s): I77.89 - Other specified disorders of arteries and arterioles Plan: Mildly enlarged thoracic aorta. Repeat echocardiogram in near future to assess for any change. Continue aggressive blood pressure control. Most likely atherosclerotic in nature. Requires no surgical intervention at this point tanisha e. Continue aggressive vascular risk factor modification as above. (3) PVCs (premature ventricular contractions): Code(s): I49.3 - Ventricular premature depolarization Plan: Prior history of highly symptomatic PVCs currently suppressed on metoprolol therapy. Continue the same. Avoidance of stimulants was discussed. Advised to call me with any new symptoms. Will follow up in the clinic in 1 year's time, sooner p.r.n.. Thank you for allowing me to partake in his care Medications: Discontinued clopidogrel Discontinued Reason: Doctor's Order 75 mg PO DAILY 90 tabs 3RF Coding Level of Care Code Est Pt Level 4 (35737) Diagnoses CAD (coronary artery disease) I25.10 Enlarged thoracic aorta I77.89 PVCs (premature ventricular contractions) I49.3 CPT Codes EKG - CPT: 34848-[id number], Complete ([id number])
== END 2023-02-02 11:24 | disposition home or self-care (01) ==
PROVIDERS: Visit Provider Internal Medicine Cardiovascular Disease
DX: I25.10 Atherosclerotic heart disease of native coronary artery without angina pectoris (principal); I77.89 Other specified disorders of arteries and arterioles; I49.3 Ventricular premature depolarization
CPT/HCPCS: 93010; 99214

== ENCOUNTER → 2023-02-02 10:26 | Outpatient (BNVA) | payer MEDICARE, SELFPAY | PROVIDERS: Visit Provider Internal Medicine Cardiovascular Disease | DX: I77.89 Other specified disorders of arteries and arterioles (principal); I25.10 Atherosclerotic heart disease of native coronary artery without angina pectoris; I11.9 Hypertensive heart disease without heart failure; I49.3 Ventricular premature depolarization; I44.0 Atrioventricular block, first degree; I45.10 Unspecified right bundle-branch block; I24.9 Acute ischemic heart disease, unspecified; Z95.1 Presence of aortocoronary bypass graft; Z98.61 Coronary angioplasty status; Z98.890 Other specified postprocedural states | CPT/HCPCS: 93005; 99212 ==

== ENCOUNTER → 2023-03-07 13:46 | Outpatient (REF) | payer MEDICARE, SELFPAY ==
--- NOTE | 2023-03-07 13:49 | CA_ITS ---
Transthoracic Echocardiogram Patient (Last, First, Middle): Dante Andino C Gender: Male Date of : 1945 Age: 77 Procedure Date: 03/07/2023 Procedure Type: Transthoracic Echocardiogram Location: OP Height: 172.72 cm Weight: 74.84 kg BSA: 1.88 m2 Heart Rate: 60 bpm BP: 95 / 60 mmHg School Commissioner: STEFANI Referring MD: Jason Okeefe MD Roving Frame Tender: Jason Okeefe MD Symptoms: I77.89 - Other specified disorders of arteries and arterioles Study Quality: Adequate ECG Rhythm: normal sinus rhythm with PVCs Conclusions: - 1. Normal LV ejection fraction 55-60% with grade 1 diastolic dysfunction with underlying regional wall motion abnormality suggestive of coronary artery disease 2. Mild mitral regurgitation 3. Normal RV systolic pressure 4. Upper limits of normal ascending aortic size 5. No gross pericardial effusion Findings Left Ventricle Normal left ventricular size, thickness, and systolic function. The visually estimated ejection fraction is between 55-60%. Spectral Doppler is indicative of an impaired relaxation filling pattern. E/E prime ratio is <8, consistent with normal filling pressures. Evidence suggests grade I (mild) diastolic dysfunction. There is moderate septal asymmetric hypertrophy. Wall Motion Rest Echo Findings The basal anterior and basal anteroseptal segments are hypokinetic. The basal inferior and basal inferoseptal segments are akinetic. All other scored wall segments showed normal motion. Right Ventricle Normal right ventricular cavity size and systolic function. Atria The left atrium is normal in size. There is no evidence of interatrial shunt. The right atrium is normal in size. Aortic Valve There is mild calcification of the aortic valve. There is mild thickening of the aortic valve. There is no aortic valve stenosis. There is no aortic valve regurgitation. Mitral Valve There is mild anterior and posterior mitral leaflet thickening. There is mild mitral annular calcification. There is mild mitral valve regurgitation. There is no mitral valve stenosis. Pulmonic Valve The pulmonic valve is likely normal. There is trace pulmonic valve regurgitation. Tricuspid Valve Normal tricuspid valve structure. There is trace tricuspid valve regurgitation. The right ventricular systolic pressure is normal. The right ventricular systolic pressure is 17 mmHg. Normal right atrial pressure. There is no evidence of pulmonary hypertension. Great Vessels The pulmonary artery was not well visualized. Small plaque is seen in the sino tubular ridge. Venous The inferior vena cava is normal in size and collapses greater than 50% with inspiration. Pericardium/Pleural There is no evidence of pericardial effusion. Prior Study Comparison No significant change compared to prior study dated: 07/06/2021. Measurements 2D Linear Measurements IVSd: 1.77 0.6-0.9/0.6-1.0 cm LVIDd: 3.74 3.9-5.3/4.2-5.9 cm LVIDd Index: 1.99 2.4-3.2/2.2-3.1 cm/m2 LVIDs: 2.94 2.0-3.6 cm LVPWd: 1.08 0.7-1.1 cm LA Diam: 4.20 2.7-3.8/3.0-4.0 cm LAIDs Index: 2.23 1.5-2.3 cm/m2 LV Mass: 243.23 67-162/88-224 g LV Mass Index: 129.38 43-95/49-115 g/m2 LVOT Diam: 2.20 3.0+(-)1.3 cm 2D Systolic Function EF 4C: 65.20 >55% EF 2C: 54.30 >55% EF BiP: 57.50 >55% Mitral Valve MV Pk E: 0.66 MV PK A: 0.82 MV Decel Time: 320.00 E/A: 0.80 E'Lateral: 9.57 E'Medial: 7.83 E/E' Med: 8.40 E/E' Lat: 6.90 PHT: 94.00 MVA PHT: 2.34 Decel [place]: 2.06 Aortic Valve AoV Pk Mendez: 1.25 AoV Mn Mendez: 0.84 AoV VTI: 0.28 AoV Pk Grad: 6.00 Aov Mn Grad: 3.00 MORA Cont.VTI: 2.78 LVOT LVOT Pk Mendez: 0.93 LVOT Mn Mendez: 0.62 LVOT VTI: 0.21 LVOT Pk Grad: 3.00 LVOT Mn Grad: 2.00 LVOT Diam: 2.20 LVOT Area: 3.80 Diastolic Function MV Pk E: 0.66 MV Pk A: 0.82 E/A: 0.80 E'Medial: 7.83 E/E' Med: 8.40 E' Laterial: 9.57 E/E' Lat: 6.90 Right Ventricle TAPSE (mm): 19.10 TVS' Mendez: 9.68 Tricuspid Valve TR Pk Mendez: 1.86 TR Pk Grad: 14.00 RA Press: 3.00 RVSP: 17.00 Great Vessels Aorta Sinus of Valsalva: 3.80 2.0-3.5 cm Ao Asc: 3.60 2.1-3.4 cm Pulmonary Valve PV Pk Mendez: 1.07 Peak PV Grad: 5.00 Updated in Other Vendor System with Status of Final Jason Okeefe MD electronically signed on 03/07/2023 5:12:05 PM with status of Final
== END ==
LOC: HO.CARD 13:46
PROVIDERS: PCP Internal Medicine; Visit Provider Internal Medicine Cardiovascular Disease
DX: I77.89 Other specified disorders of arteries and arterioles (principal)
CPT/HCPCS: 93306

== ENCOUNTER → 2023-03-07 13:49 | Outpatient (BNV) | payer MEDICARE, SELFPAY | PROVIDERS: PCP Internal Medicine; Visit Provider Internal Medicine Cardiovascular Disease | DX: I34.0 Nonrheumatic mitral (valve) insufficiency (principal) | CPT/HCPCS: 93306 ==

== ENCOUNTER 2024-06-21 14:40 | Outpatient (AMB) | payer MEDICARE, SELFPAY ==
--- NOTE | 2024-06-21 14:42 | A.OFFVIS_ITS ---
Vital Signs 06/21/24 14:47 Height 5 ft 8 in Weight 160 lb 0.889 oz BMI 24.3 BP 100/50 L Blood Pressure Location Lt brachial Position Sitting Pulse 62 Pulse Source Monitor Intake Visit Reasons: 1y follow up Intake Note: 1 yr f/up Cook'S Assistant Required: No Accompanied by: Spouse Allergies No Known Allergies Allergy (Verified 03/31/22 13:52) Medication List - Last Reconciled 06/21/24 by Jason Okeefe MD acetaminophen ER 1,300 mg PO Q12H PRN aspirin (Adult Low Dose Aspirin) 81 mg PO DAILY atorvastatin 80 mg PO DAILY cholecalciferol (vitamin D3) (Vitamin D3) 25 mcg PO DAILY cyanocobalamin (vitamin B-12) (Vitamin B-12) 1,000 mcg PO DAILY famotidine (Pepcid) 20 mg PO BID isosorbide mononitrate ER 30 mg PO DAILY metoprolol succinate ER 50 mg PO DAILY nitroglycerin 0.4 mg sublingual Q5M PRN HPI Comments Details: Robert comes for follow up. 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 He has been doing well overall. Occasionally gets lightheaded. Does not drink enough water in the day. No syncopal episodes. Denies any exertional angina including recently after clearing up snow in his driveway. Takes all his medications. No recent lipid panel. Denies any heart failure symptoms. Denies any symptoms of palpitations including skipped heartbeats. [facility] Medical History Angina pectoris, unstable Enlarged thoracic aorta PVCs (premature ventricular contractions) HTN (hypertension) CAD (coronary artery disease) Surgical History Stented coronary artery History of esophagogastroduodenoscopy (EGD) Hx of CABG Hx of cardiac cath Family History Father CVD (cardiovascular disease) Mother CVD (cardiovascular disease) Social History Household Members: Spouse Housing: House Do you presently have visiting nurse or other home services: No Alcohol intake: never Patient Tobacco Use Status: Never used Tobacco service: No Current occupational status: retired and disabled Review of Systems Const Denies chills, Denies fatigue, Denies fever(s), Denies frequent falls, Denies weakness, Denies weight gain and Denies weight loss ENT Denies dizziness Card Denies chest pain, Denies leg edema, Denies lightheadedness, Denies palpitations, Denies dyspnea and Denies dyspnea on exertion Resp Denies cough, Denies dyspnea and Denies dyspnea on exertion GI Denies hematochezia Musc Denies abnormal gait, Denies muscle weakness, Denies numbness, Denies radiating pain into limb and Denies tingling Neuro Denies abnormal gait, Denies dizziness, Denies frequent falls, Denies numbness, Denies tingling and Denies weakness Endo Denies fatigue and Denies palpitations Physical Exam Vital Signs: Last Vital Signs Pulse 62 06/21/24 14:47 BP 100/50 L 06/21/24 14:47 BMI result Body Mass Index 24.3 Const Other: ambulating with walker General: cooperative, healthy appearing, comfortable and no acute distress Nutritional Appearance: average body habitus and other (Frail appearing) Neck Neck: Yes normal visual inspection Resp Effort & Inspection: normal respiratory effort Auscultation: clear to auscultation bilaterally, no crackles, no rales, no rhonchi and no wheezes Cardio Jugular venous distension: no JVD Rate: regular rate Rhythm: regular rhythm Heart sounds: S1 normal heart sound present, S2 normal heart sound present, no gallops, no murmurs and no rubs Peripheral pulses: Peripheral pulses 2+ throughout Extrem General: Yes normal to inspection, No no pedal edema and No calf tenderness Psych Appearance: grossly normal Mental Status: mental status grossly normal Speech and movement: Normal speech and movement present Office Procedures EKG Details: EKG shows normal sinus rhythm with QS pattern and high lateral leads suggestive of basal anterolateral infarct along with tall R-waves in lead V2 suggestive of inferolateral infarct. [id number], Complete Assessment & Plan Assessment & Plan (1) CAD (coronary artery disease): Code(s): I25.10 - Atherosclerotic heart disease of [place] coronary artery without angina pectoris Category: Medical Plan: Complex coronary artery disease with prior coronary artery bypass grafting then pursued by stenting. Has done well since then and has no recurrent anginal symptoms including on dual antianginal therapy with isosorbide and metoprolol. Continue the same. Continue low-dose aspirin therapy for life. Continue high- intensity statin therapy. Advised lipid panel in near future. Target goal LDL less than 70 mg/dL. Advised to call me with any new symptoms. (2) HTN (hypertension): Code(s): I10 - Essential (primary) hypertension Category: Medical Plan: Hypertension with over corrected blood pressure at this point time. He has occasional symptoms of lightheadedness. Discussed about orthostatic precautions. Advised to increase water intake. Advised to monitor blood pressure intermittently at home maintain a log. If blood pressure remains persistently low will need to discontinue isosorbide therapy. (3) PVCs (premature ventricular contractions): Code(s): I49.3 - Ventricular premature depolarization Category: Medical Plan: PVCs which are now suppressed at this point time on metoprolol therapy. No symptoms. Had significant symptoms when he was having significant ischemia and anginal symptoms. Currently symptoms subsided. Avoidance stimulants was discussed. Will follow up in the clinic in 1 year's time, sooner p.r.n.. Thank you for allowing me to partake in his care Orders: Orders Lipid Panel Today I25.10 - Atherosclerotic heart disease of [place] coronary artery without angina pectoris Coding Level of Care Code Est Pt Level 4 (01750) Complex EM visit Add On G2211 Diagnoses CAD (coronary artery disease) I25.10 HTN (hypertension) I10 PVCs (premature ventricular contractions) I49.3 CPT Codes EKG - CPT: 38825-[id number], Complete ([id number])
[2024-06-21 14:47] VITALS: BP 100/50; PULSE 62; BMI 24.3
--- OUTSIDE RECORDS SUMMARY | 2024-06-21 15:49 | XMS_ITS | Patient Health Record ---
Author Organization [facility] Address [address] [place] [address] Care Team Providers Care Development Executive Name Role Phone Jaya Lee MD Primary Care Provider Unavaila Torsten Rubio Jr Unavailable REASON FOR REFERRAL No Information MEDICATIONS Medication SIG (Take, Route, Fr equency, Duration) Notes Start Date End Date Status Omeprazole 40 MG TAKE 1 CAPSULE BY MO UTH EVERY DAY for 90 Active SOCIAL HISTORY Sex Assigned At : Social History Observation Description Sex Assigned At Unknown PROBLEMS Problem Type ICD Code Onset Dates Problem Status W/U Status Risk SNOMED Code Notes Problem Erosive esophagitis (K22.10) Active confirmed Erosive esophagitis (16770647) PLAN OF TREATMENT No Information Insurance Providers Payer Name Payer Address Payer Phone Subscriber Number Group Number Insured Name Patient Relationship to Insured Coverage Start Date Coverage End Date [facility] [address] [place] [address] [id number] ROLANDO CAMACHO Self - patient is the insured
--- OUTSIDE RECORDS SUMMARY | 2024-06-21 15:50 | XMS_ITS ---
Author Organization [facility] on Address Unknown Problems Problem Status Start Date End Date WEDGE COMPRESSION FRACTURE O F FOURTH LUMBAR VERTEBRA, SUBSEQUENT ENCOUNTER FOR FRACTURE WITH ROUTINE HEALING (Primary) (S32.040D - ICD-10-CM) ACTIVE 11/17/2021 WEDGE COMPRESSION FRACTURE O F T11-T12 VERTEBRA, SUBSEQUENT ENCOUNTER FOR FRACTURE WITH ROUTINE HEALING (S22.080D - ICD-10-CM) ACTIVE 11/17/2021 SPONDYLOSIS WITHOUT MYELOPAT HY OR RADICULOPATHY, LUMBAR REGION (M47.816 - ICD-10-CM) ACTIVE 11/17/2021 ATHEROSCLEROTIC HEART DISEAS E OF [place] CORONARY ARTERY WITHOUT ANGINA PECTORIS (I25.10 - ICD-10-CM) ACTIVE 11/17/2021 ESSENTIAL (PRIMARY) HYPERTENSION (I10 - ICD-10-CM) ACT JANETT 11/17/2021 GASTRO-ESOPHAGEAL REFLUX DIS EASE WITHOUT ESOPHAGITIS (K21.9 - ICD-10-CM) ACTIVE 11/17/2021 IDIOPATHIC ASEPTIC NECROSIS OF RIGHT FEMUR (M87.051 - ICD-10-CM) ACTIVE 11/17/2021 IDIOPATHIC ASEPTIC NECROSIS OF LEFT FEMUR (M87.052 - ICD-10-CM) ACTIVE 11/17/2021 Encounters Encounter Performer Performer Role Encounter Diagnoses Location Date Discharge - Discharged to home or self care - Independent Living [facility] 11/17/2021 06:37 pm EDT - 11/27/2021 07:05 pm EDT Immunizations Vaccine Date SARS-COV-2 (COVID-19) 06/24/2020 12:00 a m EST SARS-COV-2 (COVID-19) 06/03/2020 12:00 a m EST SARS-COV-2 (COVID-19 BOOSTER) 01/29/2021 12:00 am EDT Social History
== END 2024-06-21 15:18 | disposition home or self-care (01) ==
PROVIDERS: PCP Internal Medicine; Visit Provider Internal Medicine Cardiovascular Disease
DX: I25.10 Atherosclerotic heart disease of native coronary artery without angina pectoris (principal); I10 Essential (primary) hypertension; I49.3 Ventricular premature depolarization
CPT/HCPCS: 93010; 99214; G2211

== ENCOUNTER → 2024-06-21 14:40 | Outpatient (BNVA) | payer MEDICARE, SELFPAY | PROVIDERS: PCP Internal Medicine; Visit Provider Internal Medicine Cardiovascular Disease | DX: I25.10 Atherosclerotic heart disease of native coronary artery without angina pectoris (principal); I10 Essential (primary) hypertension; I49.3 Ventricular premature depolarization; I44.0 Atrioventricular block, first degree; R94.31 Abnormal electrocardiogram [ECG] [EKG] | CPT/HCPCS: 93005; 99212 ==